=== PATIENT | male | born 1960 | race Caucasian/White ===

== ENCOUNTER 2021-08-07 01:49 | Inpatient (IN) | payer OTHER ==
[2021-08-07 02:38] LABS: Protime INR 1.39
[2021-08-07 02:42] LABS: Arterial Blood Carboxyhemoglob 2.9 % (0-1.5); Blood Gas Oxyhemoglobin 93.8 % (94-97); Blood O2 Saturation 97.8 % (92-98.5)
[2021-08-07] MEDS ORDERED: NA CHLORIDE 0.9% 2,000 ML ONE (02:42)
[2021-08-07 02:50] LABS: Absolute Lymphocytes (CBC) 0.1 K/uL (0.7-4.9); Basophils % 0.1 % (0-1.3); Hematocrit 28.1 % (39.6-49.0); Lymphocytes % 0.5 % (15.3-44.8); RBC Red Blood Cell Count 2.97 M/uL (4.33-5.43)
[2021-08-07] MEDS ORDERED: CEFEPIME/SWI 1gm 10 ML ONE (02:53)
[2021-08-07 02:54] LABS: ALT/SGPT 51 U/L (12-78); AST/SGOT 83 U/L (15-37); Albumin 1.9 g/dL (3.4-5.0); Alkaline Phosphatase 658 U/L (45-117); Amylase 20 U/L (25-115); BUN Blood Urea Nitrogen 23 mg/dL (7-18); Bicarbonate 18 mmol/L (21-32); Bilirubin Direct 1.1 mg/dL (0-0.2); Bilirubin Total 1.4 mg/dL (0.2-1.0); CKMB Creatine Kinase MB 2.7 ng/mL (1.0-3.6); Creatine Phosphokinase 75 U/L (39-308); Glucose Level 60 mg/dL (74-106); Lipase 11 U/L (73-393); NT PRO-BNP 6178 pg/mL (<125); Potassium 3.7 mmol/L (3.5-5.1); Protein, Total 5.4 g/dL (6.4-8.2); Sodium Level 140 mmol/L (136-145); Troponin (Emerg Dept Use Only) 0.12 ng/mL (0.0-0.045)
[2021-08-07] MEDS ORDERED: NA CHLORIDE 0.9% 250 ML ONE ×2 (03:18→22:37)
[2021-08-07] MEDS ORDERED: VANCOMYCIN 1 GM/VIAL ONE ×2 (03:18→22:36)
[2021-08-07] MEDS ORDERED: ALBUTEROL 2.5 MG/3 ML NEB SOL ONE ×4 (03:18→20:37)
[2021-08-07] MEDS ORDERED: IPRATROPIUM BROM 0.5MG/2.5ML ONE ×4 (03:18→20:37)
[2021-08-07 03:34] LABS: Blood Morphology Comment NOTED (NOT SEEN); Platelet Estimate ADEQ; Polychromasia 1+
[2021-08-07 03:40] LABS: SARS-COV-2 RT PCR NEGATIVE (NEGATIVE)
--- NOTE | 2021-08-07 04:25 | ER ---
Nurse's Notes [facility] Name: Mark Johnson Age: 61 yrs Sex: Male : 1960 Arrival Date: 08/07/2021 Time: 01:59 Bed 4 Private MD: Diagnosis: Sepsis, Pneumonia, Hypoxia Presentation: 08/07 01:59 Chief complaint: EMS states: called out for generalized weakness, low BP and low O2, em got out of [facility] last Saturday and removed port due to infection in it, also reports feeling chills, given 500 mL NS and IV Tylenol. Coronavirus screen: Vaccine status: Patient reports being unvaccinated. Ebola Screen: Patient negative for fever greater than or equal to 101.5 degrees Fahrenheit, and additional compatible Ebola Virus Disease symptoms Patient denies exposure to infectious person. Patient denies travel to an Ebola-affected area in the 21 days before illness onset. No symptoms or risks identified at this time. Initial Sepsis Screen: Does the patient meet any 2 criteria? RR > 20 per min. HR > 90 bpm. Yes Does the patient have a suspected source of infection? Yes: If YES to both, name of provider notified: Nitin Robert MD. Risk Assessment: Do you want to hurt yourself or someone else? Patient reports no desire to harm self or others. Onset of symptoms was August 07, 2021. 01:59 Method Of Arrival: EMS: [facility] em 01:59 Acuity: CHELITA 2 em Historical: - Allergies: 02:13 No Known Allergies; em - PMHx: 02:13 pancreatic cancer; em - Immunization history:: Client reports having NOT received the Covid vaccine. - Social history:: Smoking status: Patient denies any tobacco usage or history of. Screenin:35 Abuse screen: Denies threats or abuse. Nutritional screening: No deficits noted. jb4 Tuberculosis screening: No symptoms or risk factors identified. Fall Risk None identified. Assessment: 02:35 General: Appears in no apparent distress. uncomfortable, Behavior is calm, cooperative, jb4 appropriate for age. Pain: Complains of pain in back and abdomen Pain does not radiate. Pain currently is 10 out of 10 on a pain scale. Neuro: Level of Consciousness is awake, alert, obeys commands, Oriented to person, place, time, situation. Cardiovascular: Patient's skin is warm and dry. Respiratory: Airway is patent Respiratory effort is even, unlabored, Respiratory pattern is regular, symmetrical. GI: Abdomen is round distended, Abdomen is tender to palpation X 4 quads. Reports lower abdominal pain, upper abdominal pain. : No signs and/or symptoms were reported regarding the genitourinary system. EENT: No signs and/or symptoms were reported regarding the EENT system. Derm: Skin is intact, Skin is pink, warm \\T\\ dry. Musculoskeletal: Circulation, motion, and sensation intact. Range of motion: intact in all extremities. 03:38 Reassessment: Spoke to pt and spouse who confirm that pt does not want intubation or bb chest compressions if needed. He only wants supportive care with medication. 04:12 Reassessment: Patient appears in no apparent distress at this time. Patient and/or jb4 family updated on plan of care and expected duration. Pain level reassessed. Patient is alert, oriented x 3, equal unlabored respirations, skin warm/dry/pink. 05:00 Reassessment: Patient appears in no apparent distress at this time. Patient and/or jb4 family updated on plan of care and expected duration. Pain level reassessed. Patient is alert, oriented x 3, equal unlabored respirations, skin warm/dry/pink. Pt remains on bi-pap. 08:00 Reassessment: Decreased Levophed to 4mcg. ch5 08:01 Reassessment: Pt in distress and pulled BIPAP of stated"its to much air". RT paged. ch5 placed on NRB with decrease in O2 sat's to 72%. RT to bedside. medicated as ordered. Pt complaint of distended belly becoming uncomfortable. Used PT's drain to drain off 1200ml of fluid off his stomach. informed that his distention improved.. 08:01 Reassessment: resting quietly with eyes closed. Pt on max high flow NC and 10L NRB O2 ch5 due to mouth breathing. Sat 92%. 08:30 Reassessment: Decreased Levophed to 3mcg. ch5 09:59 Reassessment: MD Recio at bedside. tr6 Vital Signs: 01:59 BP 88 / 50; Pulse 137; Resp 30; Temp 98.7; Pulse Ox 99% on Non-rebreather mask; Weight em 58.97 kg; Height 5 ft. 11 in. (180.34 cm); 02:49 BP 68 / 49; Pulse 120; Resp 23; Pulse Ox 99% on Non-rebreather mask; jb4 03:06 BP 75 / 49; Pulse 121; em 03:30 BP 101 / 66; Pulse 115; Resp 29; Pulse Ox 95% on BiPAP; jb4 04:12 BP 98 / 62; Pulse 106; Resp 22; Pulse Ox 96% on CPAP; jb4 05:00 BP 93 / 60; Pulse 104; Resp 20; Pulse Ox 100% on BiPAP; jb4 06:00 BP 81 / 51; Pulse 119; Resp 22; Pulse Ox 89% on BiPAP; jb4 07:00 BP 87 / 62; Pulse 112; Resp 18; Pulse Ox 92% ; Pain 3/10; ch5 07:30 BP 98 / 54; Pulse 118; Resp 40; Pulse Ox 94% on BiPAP; Pain 0/10; ch5 08:00 BP 120 / 72; Pulse 125; Resp 36; Pulse Ox 100% on BiPAP; ch5 08:30 BP 127 / 83; Pulse 121; Resp 35; Pulse Ox 93% on Non-rebreather mask; Pain 0/10; ch5 09:25 BP 106 / 49; Pulse 126; Resp 40; Pulse Ox 90% ; ch5 10:48 BP 79 / 58; Pulse 117; Resp 30; Pulse Ox 100% on BiPAP; ch5 09/ 03:50 BP 105 / 73; Pulse 109; Resp 21; Temp 98.4; Pulse Ox 95% ; mr2 08/07 01:59 Body Mass Index 18.13 (58.97 kg, 180.34 cm) em 08/07 02:49 Provider notified of B/p, recieved verbal order for second 1L bolus of NS. jb4 08:30 On Highflow NC and NRB at 15 L ch5 09:25 ON both High flow NC and NRB ch5 ED Course: 01:59 Patient arrived in ED. em 02:01 Nitin Robert MD is Attending Physician. [facility] 02:03 Mark Harrison, RN is Primary Nurse. jb4 02:13 Triage completed. em 02:13 Arm band placed on. em 02:35 Chest Single View XRAY In Process Unspecified. EDMS 02:35 Patient has correct armband on for positive identification. Bed in low position. Call jb4 light in reach. Side rails up X 1. Pulse ox on. NIBP on. 02:35 Missed attempt(s): 18 gauge in right wrist. 20 gauge in left antecubital area. Bleeding jb4 controlled, band aid applied, catheter tip intact. 02:58 Notified ED physician of a critical lab result(s). WBCs of 21.0 and Lact[address] of 10.4 Dr chantell Robert notified. 03:51 Initiated transfer at [facility] with Oumar. Call was connected to Dr. Robert for tt3 consultation with Dr. Santos. Call was sent back and Oumar informed me that Dr. Santos believes the pt needs ICU. The only exceptions to have the pt accepted at this time would to have him stable without bipap, or to admit the pt and attempt to do an inpatient transfer to [facility]. Information was passed on to So Man RN, Charge Nurse and Dr. Robert. 04:03 CT Chest For PE Angio In Process Unspecified. EDMS 04:04 CT Abd/Pelvis - IV Contrast Only In Process Unspecified. EDMS 04:24 Franchesca Recio MD is Hospitalizing Provider. [facility] 05:28 Initiated transfer at [facility] with Shireen Crouch. Stated she would do a capacity tt3 check and call back. 05:33 Initiated transfer at [facility] with Brenda. Stated they were at ICU saturation but would tt3 keep the pt on a wait list. 05:38 Initiated transfer at [facility] with Alee. Was informed the request would be denied as there tt3 are no ICU beds in their [facility] region which includes all of [place], [place], and [facility]. Information passed on to Dr. Robert about all facilities so far. 05:45 Shireen Crouch with [facility] called back and stated that [facility], [facility], and [address] are all at capacity. Stated that once the pt is able to be downgraded a bed may be available at the [facility]. Shireen spoke with So Man RN, Charge Nurse and informed her of this information. 05:55 Initiated transfer at [facility] with Trav Snell. Stated he would do a capacity tt3 check and call back. 05:57 Initiated transfer at [facility] with Alisa Moni. Was informed that they were at ICU tt3 capacity so they would have to deny the transfer request. 06:00 Assisted provider with central line placement. Set up central line tray. Triple lumen jb4 line placed in right femoral. Line placed by Lonnie COOMBS Placement verified by blood return, Dressed with Tegaderm, Patient tolerated well. 06:00 Patient admitted, IV remains in place. jb4 06:19 Travbryson Snell with [facility] called back and stated that they are on a system wide tt3 saturation and would have to deny the transfer request. 07:47 Basic Metabolic Panel Sent. 5 08:21 spoke with Joycelyn at [facility]. she will call back after taking to admin about taking bd the pt. 08/10 22:12 Amylase, Serum Sent. wg 08/11 11:17 EKG done, by ED staff, reviewed by Franchesca Recio MD. mh5 Administered Medications: 08/07 02:03 Not Given (Physician Discretion): NS 0.9% (30 ml/kg) 30 ml/kg IV at bolus once; Sepsis jb4 Protocol 02:31 Not Given (Hemodynamic Parameters): morphine 4 mg IVP once; RASS on ADMIN: Combtv4, jb4 Very Agttd3, Agttd2, Rstlss1, AlertClm0, Drwsy-1, Lt Sdtn-2, Mod Sdtn-3, Dp Sdtn-4, UnArsble-5 02:31 Not Given (Patient Refused): Zofran (Ondansetron) 4 mg IVP once; over 2 minutes jb4 02:31 Drug: Cefepime 1 grams Route: IVPB; Rate: 200 ml/hr; Infused Over: 30 mins; Site: right em antecubital; 03:00 Follow up: Response: No adverse reaction; IV Status: Completed infusion jb4 02:31 Drug: NS 0.9% 1000 ml Route: IV; Rate: 1 bolus; Site: right antecubital; jb4 03:30 Follow up: Response: No adverse reaction; IV Status: Completed infusion; IV Intake: jb4 1000ml 02:57 Drug: NS 0.9% 1000 ml Route: IV; Rate: 1 bolus; Site: right antecubital; jb4 04:00 Follow up: Response: No adverse reaction; IV Status: Completed infusion; IV Intake: jb4 1000ml 04:07 Drug: vancoMYCIN 1 grams Route: IVPB; Infused Over: 2 hrs; Site: right antecubital; jb4 06:07 Follow up: Response: No adverse reaction; IV Status: Completed infusion; IV Intake: jb4 250ml 04:28 Drug: Albuterol 2.5 mg Route: Inhalation; jb4 04:52 Follow up: Response: No adverse reaction jb4 04:28 Drug: AtroVENT (ipratropium) Aerosol 0.5 mg Route: Inhalation; jb4 04:52 Follow up: Response: No adverse reaction jb4 04:50 Drug: D5-NS 1000 ml Route: IV; Rate: 125 ml/hr; Site: right antecubital; jb4 06:14 Not Given (Medication unavailable): Calcium Gluconate 1 grams IVPB once over 60 mins; jb4 (mix in NS 100 mL) 06:26 Drug: NS 0.9% 500 ml Route: IV; Rate: bolus; Site: right femoral; jb4 06:48 Follow up: Response: No adverse reaction; IV Status: Completed infusion; IV Intake: jb4 500ml 06:26 Drug: Levophed (norepinephrine) (4 mg/250 mL D5W 4 mcg/min Route: IV; Rate: calculated jb4 rate; Site: right femoral; 08:00 Follow up: Rate change 4 mcg/min ch5 08:30 Follow up: Rate change 3 mcg/min ch5 10:42 Follow up: Rate change 4 mcg/min ch5 06:47 Drug: Ativan (LORazepam) 0.5 mg Route: IVP; Site: right femoral; jb4 07:48 Drug: Ativan (LORazepam) 0.5 mg Route: IVP; Site: right antecubital; ch5 09:35 Follow up: Response: RASS: Alert and Calm (0) ch5 09:35 Drug: Ativan (LORazepam) 0.5 mg Route: IVP; Site: right antecubital; ch5 Intake: 03:30 IV: 1000ml; Total: 1000ml. jb4 04:00 IV: 1000ml; Total: 2000ml. jb4 06:07 IV: 250ml; Total: 2250ml. jb4 06:48 IV: 500ml; Total: 2750ml. jb4 Outcome: 04:25 Decision to Hospitalize by Provider. mh7 08/12 14:56 Patient left the ED. sv Signatures: Dispatcher [employer] EDMargi Fine Stephanie, RN RN sv Carmelo White, RN RN So Strong, AMERICO RN bb Mark Harrison, AMERICO RN jb4 Azalea Clarke Nitin Morrison MD MD 7 Jeff Alves 3 Annalisa Florez RN RN 6 Shubham Puente RN RN ch5 Beny Beaver RN Harrison Funk RN RN mr2 Corrections: (The following items were deleted from the chart) 08/07 08:42 08:00 Reassessment: Decreased Levophed to 3mcg. ch5 ch5 10:18 10:12 Rate change 3 mcg/min ch5 ch5
--- NOTE | 2021-08-07 04:25 | EDPHYS ---
Physician Documentation [facility] Name: Mark Johnson Age: 61 yrs Sex: Male : 1960 Arrival Date: 08/07/2021 Time: 01:59 Bed 4 Private MD: ED Physician Nitin Robert HPI: 08/07 01:55 This 61 yrs old Male presents to ER via EMS with complaints of Shortness of mh7 Breath. 01:55 The patient has shortness of breath at rest. Onset: The symptoms/episode began/occurred mh7 last night. Duration: The symptoms are continuous, and are steadily getting worse. The patient's shortness of breath is aggravated by nothing, is alleviated by nothing. Associated signs and symptoms: Pertinent negatives: chest pain, non-productive cough, productive cough, diaphoresis, dizziness, fever, hemoptysis, loss of consciousness, nausea, numbness in extremities, visual changes, vomiting, Generalized weakness. Severity of symptoms: At their worst the symptoms were moderate today, in the emergency department the symptoms are unchanged. Patient is being treated at [facility] for pancreatic cancer. He was admitted there and discharged last week after treatment for sepsis related to an indwelling catheter. He denies any headache, chest pain, fever, nausea, vomiting, diarrhea, numbness/tingling, or focal weakness.. Historical: - Allergies: 02:13 No Known Allergies; em - PMHx: 02:13 pancreatic cancer; em - Immunization history:: Client reports having NOT received the Covid vaccine. - Social history:: Smoking status: Patient denies any tobacco usage or history of. ROS: 01:55 Constitutional: Negative for fever, chills, and weight loss, Eyes: Negative for injury, mh7 pain, redness, and discharge, ENT: Negative for injury, pain, and discharge, Neck: Negative for injury, pain, and swelling, Cardiovascular: Negative for chest pain, palpitations, and edema, Back: Negative for injury and pain, : Negative for injury, bleeding, discharge, and swelling, MS/Extremity: Negative for injury and deformity, Skin: Negative for injury, rash, and discoloration, Neuro: Negative for headache, weakness, numbness, tingling, and seizure, Psych: Negative for depression, anxiety, suicide ideation, homicidal ideation, and hallucinations, Allergy/Immunology: Negative for hives, rash, and allergies, Endocrine: Negative for neck swelling, polydipsia, polyuria, polyphagia, and marked weight changes, Hematologic/Lymphatic: Negative for swollen nodes, abnormal bleeding, and unusual bruising. Exam: 01:55 Head/Face: Normocephalic, atraumatic. Eyes: Pupils equal round and reactive to light, mh7 extra-ocular motions intact. Lids and lashes normal. Conjunctiva and sclera are non-icteric and not injected. Cornea within normal limits. Periorbital areas with no swelling, redness, or edema. Neck: Trachea midline, no thyromegaly or masses palpated, and no cervical lymphadenopathy. Supple, full range of motion without nuchal rigidity, or vertebral point tenderness. No Meningismus. Chest/axilla: Normal chest wall appearance and motion. Nontender with no deformity. No lesions are appreciated. 01:55 Back: No spinal tenderness. No costovertebral tenderness. Full range of motion. Skin: Warm, dry with normal turgor. Normal color with no rashes, no lesions, and no evidence of cellulitis. MS/ Extremity: Pulses equal, no cyanosis. Neurovascular intact. Full, normal range of motion. Neuro: Awake and alert, GCS 15, oriented to person, place, time, and situation. Cranial nerves II-XII grossly intact. Motor strength 5/5 in all extremities. Sensory grossly intact. Cerebellar exam normal. Normal gait. Psych: Awake, alert, with orientation to person, place and time. Behavior, mood, and affect are within normal limits. 01:55 Constitutional: The patient appears alert, awake, in obvious distress, mildly distressed, obviously ill, uncomfortable. 01:55 Constitutional: The patient appears frail. 01:55 Cardiovascular: Rate: tachycardic, Rhythm: regular, Pulses: no pulse deficits are appreciated, Heart sounds: normal, normal S1and S2, Edema: pedal edema, that is moderate, JVD: is not appreciated. 01:55 Respiratory: mild respiratory distress is noted, Respirations: prolonged exhalation, that is mild, tachypnea, that is moderate, Breath sounds: rhonchi, that are moderate, are heard diffusely, Respiratory rate: 26 01:55 Abdomen/GI: Inspection: distension, that is moderate, Bowel sounds: normal, in all quadrants, Palpation: mild abdominal tenderness, in all quadrants, Rectal exam: the exam is deferred, because of patient request, Indicators: McBurney's point is not tender, Heller's sign is negative, Rovsing's sign is negative, Obturator sign is negative, Psoas sign is negative, Liver: no appreciated palpable abnormalities, Hernia: not appreciated. Vital Signs: 01:59 BP 88 / 50; Pulse 137; Resp 30; Temp 98.7; Pulse Ox 99% on Non-rebreather mask; Weight em 58.97 kg; Height 5 ft. 11 in. (180.34 cm); 02:49 BP 68 / 49; Pulse 120; Resp 23; Pulse Ox 99% on Non-rebreather mask; jb4 03:06 BP 75 / 49; Pulse 121; em 03:30 BP 101 / 66; Pulse 115; Resp 29; Pulse Ox 95% on BiPAP; jb4 04:12 BP 98 / 62; Pulse 106; Resp 22; Pulse Ox 96% on CPAP; jb4 05:00 BP 93 / 60; Pulse 104; Resp 20; Pulse Ox 100% on BiPAP; jb4 06:00 BP 81 / 51; Pulse 119; Resp 22; Pulse Ox 89% on BiPAP; jb4 07:00 BP 87 / 62; Pulse 112; Resp 18; Pulse Ox 92% ; Pain 3/10; ch5 07:30 BP 98 / 54; Pulse 118; Resp 40; Pulse Ox 94% on BiPAP; Pain 0/10; ch5 08:00 BP 120 / 72; Pulse 125; Resp 36; Pulse Ox 100% on BiPAP; ch5 08:30 BP 127 / 83; Pulse 121; Resp 35; Pulse Ox 93% on Non-rebreather mask; Pain 0/10; ch5 09:25 BP 106 / 49; Pulse 126; Resp 40; Pulse Ox 90% ; ch5 10:48 BP 79 / 58; Pulse 117; Resp 30; Pulse Ox 100% on BiPAP; ch5 09 03:50 BP 105 / 73; Pulse 109; Resp 21; Temp 98.4; Pulse Ox 95% ; mr2 08/07 01:59 Body Mass Index 18.13 (58.97 kg, 180.34 cm) em 08/07 02:49 Provider notified of B/p, recieved verbal order for second 1L bolus of NS. jb4 08:30 On [place] NC and NRB at 15 L ch5 09:25 ON both High flow NC and NRB ch5 MDM: 04:22 Differential diagnosis: Anemia Anxiety Reaction asthma, Bronchitis CHF exacerbation, mh7 Chronic Obstructive Pulmonary Disease Myocardial Infarction pneumonia, Pneumothorax Psychogenic pulmonary edema, reactive airway disease. Antibiotic administration: Vancomycin plus cefepime. Data reviewed: vital signs, nurses notes, EMS record, lab test result(s), cardiac enzymes, CBC, electrolytes, EKG, radiologic studies, plain films. Data interpreted: Pulse oximetry: on BiPAP is 96 %. Interpretation: acceptable. Counseling: I had a detailed discussion with the patient and/or guardian regarding: the historical points, exam findings, and any diagnostic results supporting the discharge/admit diagnosis, lab results, radiology results, the need for further work-up and treatment in the hospital. 04:25 Patient medically screened. [facility] 04:25 ED course: Patient and his have decided to have DO NOT INTUBATE and no CPR status. [facility] We will allow IV medications including antibiotics and pressors as needed. She requested transfer to [facility] for continued care. Attempted to transfer to [facility] but transfer was declined due to no available ICU beds at this time. Will admit here and may re approach transfer to [facility] if a bed becomes available. This plan was discussed with the patient and his and they approve.. 08/07 02:02 Order name: Amylase, Serum [facility] 08/07 02:02 Order name: Basic Metabolic Panel [facility] 08/07 02:02 Order name: Blood Culture Adult (2) [facility] 08/07 02:02 Order name: CBC with Diff; Complete Time: 03:41 [facility] 08/07 02:02 Order name: CPK; Complete Time: 02:56 [facility] 08/07 02:02 Order name: Ckmb; Complete Time: 02:56 [facility] 08/07 02:02 Order name: LFT's; Complete Time: 02:56 [facility] 08/07 02:02 Order name: Lactate; Complete Time: 02:56 [facility] 08/07 02:02 Order name: Lipase; Complete Time: 02:56 [facility] 08/07 02:02 Order name: Procalcitonin; Complete Time: 03:41 [facility] 08/07 02:02 Order name: Protime (+inr); Complete Time: 02:52 7 08/07 02:02 Order name: Ptt, Activated; Complete Time: 02:52 7 08/07 02:02 Order name: Troponin (emerg Dept Use Only); Complete Time: 02:56 7 08/07 02:02 Order name: Urine Microscopic Only [facility] 08/07 02:02 Order name: PROBNP; Complete Time: 02:56 7 08/07 02:02 Order name: Amylase; Complete Time: 02:56 EDMS 08/07 02:02 Order name: Basic Metabolic Panel; Complete Time: 02:56 EDMS 08/07 02:07 Order name: Arterial Blood Gas; Complete Time: 07:43 7 08/07 02:53 Order name: Manual Differential; Complete Time: 03:41 EDMS 08/07 03:40 Order name: COVID-19/FLU A+B; Complete Time: 03:41 EDMS 08/07 05:22 Order name: Fluid Cell Count,Body; Complete Time: 16:30 [facility] 08/07 05:22 Order name: Body Fluid Culture; Complete Time: 16:30 [facility] 08/07 05:23 Order name: Misc. Lab Test; Complete Time: 16:30 [facility] 08/07 06:15 Order name: Lactate Sepsis 2 HR Follow-up; Complete Time: 07:43 EDMS 08/07 10:28 Order name: Basic Metabolic Panel; Complete Time: 16:30 [facility] 08/07 10:28 Order name: Lactate; Complete Time: 16:30 MS 08/07 12:02 Order name: ABG Arterial Blood Gas; Complete Time: 16:30 MS 08/07 15:04 Order name: Glucose, Ancillary Testing; Complete Time: 16:30 EDMS 08/07 15:25 Order name: Glucose, Ancillary Testing; Complete Time: 16:30 EDMS 08/07 17:01 Order name: Glucose, Ancillary Testing; Complete Time: 16:30 MS 08/07 17:40 Order name: Lactate Sepsis 2 HR Follow-up; Complete Time: 16:30 MS 08/07 18:29 Order name: Glucose, Ancillary Testing; Complete Time: 16:30 EDMS 08/07 18:51 Order name: Glucose, Ancillary Testing; Complete Time: 16:30 MS 08/07 19:41 Order name: Glucose, Ancillary Testing; Complete Time: 16:30 EDMS 08/07 21:56 Order name: Glucose, Ancillary Testing; Complete Time: 16:30 EDMS 08/08 00:45 Order name: Glucose, Ancillary Testing; Complete Time: 16:30 EDMS 08/08 04:30 Order name: Basic Metabolic Panel; Complete Time: 16:30 EDMS 08/08 04:30 Order name: Phosphorus; Complete Time: 16:30 EDMS 08/08 04:30 Order name: NT PRO-BNP; Complete Time: 16:30 EDMS 08/08 04:30 Order name: Magnesium; Complete Time: 16:30 EDMS 08/08 04:42 Order name: Lactate; Complete Time: 16:30 EDMS 08/08 04:50 Order name: Manual Differential; Complete Time: 16:30 EDMS 08/08 04:50 Order name: CBC with Automated Diff; Complete Time: 16:30 EDMS 08/08 06:02 Order name: ABG Arterial Blood Gas; Complete Time: 16:30 EDMS 08/08 07:35 Order name: Gram Stain--Aerobic Bottle EDMS 08/08 07:35 Order name: Gram Stain--Anaerobic Bottle EDMS 08/08 07:38 Order name: Gram Stain--Aerobic Bottle EDMS 08/08 07:38 Order name: Gram Stain--Anaerobic Bottle EDMS 08/08 07:44 Order name: Lactate Sepsis 2 HR Follow-up; Complete Time: 16:30 EDMS 08/08 07:46 Order name: Glucose, Ancillary Testing; Complete Time: 16:30 EDMS 08/08 08:03 Order name: Type and Screen EDMS 08/08 09:47 Order name: ABO/RH no charge; Complete Time: 16:30 EDMS 08/08 11:33 Order name: Glucose, Ancillary Testing; Complete Time: 16:30 EDMS 08/08 14:57 Order name: Glucose, Ancillary Testing; Complete Time: 16:30 EDMS 08/08 21:59 Order name: CBC with Automated Diff; Complete Time: 16:30 EDMS 08/08 22:21 Order name: Vancomycin Level Trough; Complete Time: 16:30 EDMS 08/08 23:54 Order name: Glucose, Ancillary Testing; Complete Time: 16:30 EDMS 08/09 06:01 Order name: CBC with Automated Diff; Complete Time: 16:30 EDMS 08/09 06:28 Order name: Lactate; Complete Time: 16:30 EDMS 08/07 02:02 Order name: Chest Single View XRAY; Complete Time: 16:30 7 08/07 02:58 Order name: CT Chest For PE Angio; Complete Time: 16:30 7 08/07 02:58 Order name: CT Abd/Pelvis - IV Contrast Only; Complete Time: 16:30 [facility] 08/09 06:30 Order name: Basic Metabolic Panel; Complete Time: 16:30 EDMS 08/09 06:30 Order name: Phosphorus; Complete Time: 16:30 EDMS 08/09 06:30 Order name: Magnesium; Complete Time: 16:30 EDMS 08/09 07:53 Order name: Glucose, Ancillary Testing; Complete Time: 16:30 EDMS 08/09 08:14 Order name: CBC Smear Scan; Complete Time: 16:30 EDMS 08/09 09:35 Order name: Lactate Sepsis 2 HR Follow-up; Complete Time: 16:30 EDMS 08/09 15:13 Order name: RAD; Complete Time: 16:30 EDMS 08/09 17:34 Order name: Protime (+INR); Complete Time: 16:30 EDMS 08/09 17:34 Order name: PTT, Activated Partial Thromb; Complete Time: 16:30 EDMS 08/09 17:34 Order name: Fibrinogen; Complete Time: 16:30 EDMS 08/09 17:34 Order name: D-Dimer; Complete Time: 16:30 EDMS 08/10 05:34 Order name: Lactate; Complete Time: 16:30 EDMS 08/10 05:34 Order name: Comprehensive Metabolic Panel; Complete Time: 16:30 EDMS 08/10 05:34 Order name: Phosphorus; Complete Time: 16:30 EDMS 08/10 05:34 Order name: NT PRO-BNP; Complete Time: 16:30 EDMS 08/10 05:34 Order name: Magnesium; Complete Time: 16:30 EDMS 08/10 05:42 Order name: Procalcitonin; Complete Time: 16:30 EDMS 08/10 05:48 Order name: CBC with Automated Diff; Complete Time: 16:30 EDMS 08/10 08:25 Order name: Glucose, Ancillary Testing; Complete Time: 16:30 EDMS 08/10 08:48 Order name: Vancomycin Level Trough; Complete Time: 16:30 EDMS 08/10 08:51 Order name: Lactate Sepsis 2 HR Follow-up; Complete Time: 16:30 EDMS 08/10 10:08 Order name: Potassium; Complete Time: 16:30 EDMS 08/10 11:47 Order name: Miscellaneous Test Lab; Complete Time: 16:30 EDMS 08/10 13:21 Order name: Glucose, Ancillary Testing; Complete Time: 16:30 EDMS 08/10 20:16 Order name: CT EDMS 08/10 20:20 Order name: CT EDMS 08/10 22:17 Order name: Glucose, Ancillary Testing EDMS 08/11 00:21 Order name: Blood Culture EDMS 08/11 06:28 Order name: CBC with Automated Diff EDMS 08/11 06:40 Order name: Ammonia EDMS 08/11 06:42 Order name: Comprehensive Metabolic Panel EDMS 08/11 06:42 Order name: Phosphorus EDMS 08/11 06:42 Order name: NT PRO-BNP EDMS 08/11 06:42 Order name: Magnesium EDMS 08/11 07:18 Order name: Procalcitonin EDMS 08/11 07:23 Order name: RAD EDMS 08/11 07:27 Order name: Glucose, Ancillary Testing EDMS 08/11 08:38 Order name: Manual Differential EDMS 08/11 14:13 Order name: Fungal Culture and Stain EDMS 08/11 14:13 Order name: Fungal Culture Blood EDMS 08/11 16:03 Order name: Urinalysis W/Microscopic EDMS 08/11 16:17 Order name: Miscellaneous Test Lab EDMS 08/11 16:32 Order name: Miscellaneous Test Lab EDMS 08/11 18:43 Order name: Potassium EDMS 08/11 21:11 Order name: Miscellaneous Test Lab EDMS 08/12 06:45 Order name: CBC with Automated Diff EDMS 08/12 07:07 Order name: Comprehensive Metabolic Panel EDMS 08/12 07:07 Order name: Magnesium EDMS 08/12 08:09 Order name: Glucose, Ancillary Testing EDMS 08/12 11:05 Order name: Manual Differential EDMS 08/12 14:23 Order name: Blood Culture EDMS 08/12 14:24 Order name: Blood Culture EDMS 08/07 02:02 Order name: Accucheck; Complete Time: 02:33 7 08/07 02:02 Order name: Cardiac monitoring; Complete Time: 02:03 7 08/07 02:02 Order name: EKG - Nurse/Tech; Complete Time: 02:03 7 08/07 02:02 Order name: IV Saline Lock - Large Bore; Complete Time: 02:31 7 08/07 02:02 Order name: Labs collected and sent; Complete Time: 02: 7 08/07 02:02 Order name: O2 Per Protocol; Complete Time: 02:03 7 08/07 02:02 Order name: O2 Sat Monitoring; Complete Time: 02:03 7 08/07 10:28 Order name: CONS Physician Consult; Complete Time: 22:11 EDMS 08/07 10:28 Order name: CONS Physician Consult; Complete Time: 22:11 EDMS 08/07 10:28 Order name: Social Service Consult; Complete Time: 22:11 EDMS 08/07 10:28 Order name: Regular; Complete Time: 22:11 EDMS 08/07 10:30 Order name: EKG Electrocardiogram; Complete Time: 22:11 EDMS Administered Medications: 02:03 Not Given (Physician Discretion): NS 0.9% (30 ml/kg) 30 ml/kg IV at bolus once; Sepsis jb4 Protocol 02:31 Not Given (Hemodynamic Parameters): morphine 4 mg IVP once; RASS on ADMIN: Combtv4, jb4 Very Agttd3, Agttd2, Rstlss1, AlertClm0, Drwsy-1, Lt Sdtn-2, Mod Sdtn-3, Dp Sdtn-4, UnArsble-5 02:31 Not Given (Patient Refused): Zofran (Ondansetron) 4 mg IVP once; over 2 minutes jb4 02:31 Drug: Cefepime 1 grams Route: IVPB; Rate: 200 ml/hr; Infused Over: 30 mins; Site: right em antecubital; 03:00 Follow up: Response: No adverse reaction; IV Status: Completed infusion jb4 02:31 Drug: NS 0.9% 1000 ml Route: IV; Rate: 1 bolus; Site: right antecubital; jb4 03:30 Follow up: Response: No adverse reaction; IV Status: Completed infusion; IV Intake: jb4 1000ml 02:57 Drug: NS 0.9% 1000 ml Route: IV; Rate: 1 bolus; Site: right antecubital; jb4 04:00 Follow up: Response: No adverse reaction; IV Status: Completed infusion; IV Intake: jb4 1000ml 04:07 Drug: vancoMYCIN 1 grams Route: IVPB; Infused Over: 2 hrs; Site: right antecubital; jb4 06:07 Follow up: Response: No adverse reaction; IV Status: Completed infusion; IV Intake: jb4 250ml 04:28 Drug: Albuterol 2.5 mg Route: Inhalation; jb4 04:52 Follow up: Response: No adverse reaction jb4 04:28 Drug: AtroVENT (ipratropium) Aerosol 0.5 mg Route: Inhalation; jb4 04:52 Follow up: Response: No adverse reaction jb4 04:50 Drug: D5-NS 1000 ml Route: IV; Rate: 125 ml/hr; Site: right antecubital; jb4 06:14 Not Given (Medication unavailable): Calcium Gluconate 1 grams IVPB once over 60 mins; jb4 (mix in NS 100 mL) 06:26 Drug: NS 0.9% 500 ml Route: IV; Rate: bolus; Site: right femoral; jb4 06:48 Follow up: Response: No adverse reaction; IV Status: Completed infusion; IV Intake: jb4 500ml 06:26 Drug: Levophed (norepinephrine) (4 mg/250 mL D5W 4 mcg/min Route: IV; Rate: calculated jb4 rate; Site: right femoral; 08:00 Follow up: Rate change 4 mcg/min ch5 08:30 Follow up: Rate change 3 mcg/min ch5 10:42 Follow up: Rate change 4 mcg/min ch5 06:47 Drug: Ativan (LORazepam) 0.5 mg Route: IVP; Site: right femoral; jb4 07:48 Drug: Ativan (LORazepam) 0.5 mg Route: IVP; Site: right antecubital; ch5 09:35 Follow up: Response: RASS: Alert and Calm (0) ch5 09:35 Drug: Ativan (LORazepam) 0.5 mg Route: IVP; Site: right antecubital; ch5 Disposition Summary: 08/07/21 04:25 Hospitalization Ordered Hospitalization Status: Inpatient Admission [facility] Provider: Franchesca Recio7 Condition: Fair [facility] Problem: an acute exacerbation mh7 Symptoms: have improved 7 Bed/Room Type: Standard [facility] Location: Telemetry/MedSurg (Inpatient)(08/12/21 13:20) Room Assignment: 208(08/12/21 13:20) sv Diagnosis - Sepsis, Pneumonia, Hypoxia [facility] Forms: - Medication Reconciliation Form 7 - SBAR form 7 Signatures: Dispatcher [employer] EDMS Haydee Hui RN RN Carmelo White RN RN em Sam Ramirez MD MD rn Smirch, Shelby, RN RN Mark Harrison RN RN jb4 Holmes, Maurice, MD MD 7 Shubham Puente RN RN ch5 Jonnathan Prince pr3 Corrections: (The following items were deleted from the chart) 02:35 02:07 Influenza Screen (A \T\ B)+BA.LAB.BRZ ordered. EDMS EDMS 02:36 02:07 CORONAVIRUS+MR.LAB.BRZ ordered. EDMS EDMS 05:23 05:23 FLUID SOURCE+H.LAB.BRZ ordered. EDMS EDMS 13:10 04:25 Telemetry/MedSurg (Inpatient) [facility] 13:10 04:25 [facility] 08/10 22:11 08/07 02:02 Urine Dipstick-Ancillary ordered. 7 08/12 13:20 08/07 13:10 [facility] ER HOLD sv 08/12 13:20 08/07 13:10 ERHOLD- [facility]
[2021-08-07] MEDS ORDERED: D5 0.9 NS 1,000 ML IV ONE (04:42)
[2021-08-07 06:29] LABS: Body Fluid Source PERITONEAL
[2021-08-07 06:30] LABS: Appearance SLT. TURBID (CLEAR); Color of fluid Yellow (COLORLESS)
[2021-08-07] MEDS ORDERED: NOREPINEPHRINE 4mg/D5W 250mL 4 MG/250 ML BAG IV ONE (06:43)
[2021-08-07] MEDS ORDERED: NA CHLORIDE 0.9% 500 ML ONE (06:43)
[2021-08-07] MEDS ORDERED: LORazepam 2 MG/ML VIAL ONE ×3 (07:05→13:00)
[2021-08-07 10:06] LABS: Body Fluid WBC 68 /mm^3
[2021-08-07] MEDS ORDERED: HYDROCORTISONE SUC 100 MG INJ IV ONE ×2 (10:06→19:08)
[2021-08-07] MEDS ORDERED: ALBUMIN HUMAN 25% 200 ML IV ONE ×3 (10:10→21:16)
[2021-08-07] MEDS ORDERED: ONDANSETRON 4 MG/2 ML VIAL IV PRN (10:22)
[2021-08-07] MEDS ORDERED: NOREPINEPHRINE 4 MG in D5W 250 ML IV PRN (11:15)
[2021-08-07 12:00] LABS: Arterial Blood Carboxyhemoglob 1.6 % (0-1.5); Blood Gas Oxyhemoglobin 79.4 % (94-97); Blood O2 Saturation 81.8 % (92-98.5)
[2021-08-07] MEDS: VANCOMYCIN/NS 1 gm 1 GM/250 ML BAG IVPB SCH ×2 (12:00→22:30)
[2021-08-07] MEDS: ALBUTEROL 2.5 MG/3 ML NEB SOL NEB SCH ×3 (12:00→20:18)
[2021-08-07] MEDS: PANTOPRAZOLE 40 MG INJ IVP SCH (12:00)
[2021-08-07] MEDS ORDERED: PIPER TAZO 3.375 GM in NA CHLORIDE 0.9% 100 ML IV SCH (12:00)
[2021-08-07] MEDS: D5W 1,000 ML with NA BICARB 8.4% 150 MEQ IV SCH ×4 (12:00→23:00)
[2021-08-07] MEDS: IPRATROPIUM BROM 0.5MG/2.5ML NEB SCH ×3 (12:00→20:18)
[2021-08-07] MEDS: LORazepam 2 MG/ML VIAL IV PRN (12:30)
--- NOTE | 2021-08-07 12:43 | RAD REPORT ---
EXAM DESCRIPTION: CT Angiography Chest With Intravenous Contrast CLINICAL HISTORY: The patient is 61 years old and is Male; pancreatic cancer;Abdominal distention TECHNIQUE: Axial computed tomographic angiography images of the chest with intravenous contrast. S agittal and coronal reformatted images were created and reviewed. This CT exam was performed using one or more of the following dose reduction techniques: automated exposure control, adjustment of t he mA and/or kV according to patient size, and/or use of iterative reconstruction technique. MIP re constructed images were created and reviewed. COMPARISON: No relevant prior studies available. FINDINGS: Artifacts: Mild motion artifact. Pulmonary arteries: No definite PE visualized. Aorta: No acute findings. No thoracic aortic aneurysm. Lungs: Dependent atelectasis in the lungs. Hazy dependent groundglass opacities bilaterally sugge sting mild edema. Pleural space: No significant pleural fluid. No pneumothorax. Heart: Unremarkable. No cardiomegaly. No significant pericardial effusion. No evidence of R V dysfunction. 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 No acute fractur e visualized. No dislocation. Soft tissues: Unremarkable. Lymph nodes: Unremarkable. No enlarged lymph nodes. * A single impression for all exams can be found at the end of this report EXAM DESCRIPTION: CT Abdomen and Pelvis With Intravenous Contrast CLINICAL HISTORY: The patient is 61 years old and is Male; pancreatic cancer;Abdominal distention TECHNIQUE: Axial computed tomography images of the abdomen and pelvis with intravenous contrast. S agittal and coronal reformatted images were created and reviewed. This CT exam was performed using one or more of the following dose reduction techniques: automated exposure control, adjustment of t he mA and/or kV according to patient size, and/or use of iterative reconstruction technique. COMPARISON: No relevant prior studies available. FINDINGS: Lung bases: Unremarkable. No mass. No consolidation. ABDOMEN: Liver: There are a few tiny hypodense lesions in the right hepatic lobe too small accurately marah acterize, less than 5 mm. Gallbladder and bile ducts: Mild intrahepatic biliary dilatation with pneumobilia. Distended gall bladder. Biliary stent. No definite biliary duct dilatation. No calcified stones. Pancreas: Mild edema in the distal pancreatic head. Atrophic pancreatic tail. Spleen: No splenomegaly. Adrenals: Unremarkable. No mass. Kidneys and ureters: Punctate left nephrolithiasis. Kidneys are otherwise unremarkable. No hydronephrosis. Stomach and bowel: Enhancing rugal folds in the stomach, with air-fluid level in the stomach. Duo denum wall thickening. Large amount of stool in the colon from the proximal left colon to the rectum. Mild diffuse r ectal wall thickening. No small bowel dilatation or obstruction. PELVIS: Appendix: No findings to suggest acute appendicitis. Bladder: Unremarkable. No mass. Reproductive: Unremarkable as visualized. ABDOMEN and PELVIS: Intraperitoneal space: Moderate to large amount of ascites. No free air. Bones/joints: Multiple compression fractures, T12-L4, old/chronic in appearance. Degenerative dis c disease with endplate change at L5-S1. No dislocation. Soft tissues: Diffuse subcutaneous edema. Vasculature: IVC filter. No abdominal aortic aneurysm. Lymph nodes: No pathologically enlarged lymph nodes. Tubes, lines and devices: Percutaneous pigtail catheter in the right lateral abdomen. * A single impression for all exams can be found at the end of this report IMPRESSION: CT Angiography Chest With Intravenous Contrast: 1. Mild motion artifact. No PE identified. 2. Dependent atelectasis in the lungs. Hazy dependent groundglass opacities bilaterally suggesting mild edema. CT Abdomen and Pelvis With Intravenous Contrast: 1. Moderate to large amount of ascites. 2. Mild intrahepatic biliary dilatation with pneumobilia. Distended gallbladder. Biliary stent. 3. There are a few tiny hypodense lesions in the right hepatic lobe too small accurately characteri ze, less than 5 mm. Comparison with previous exams recommended. 4. Mild edema in the distal pancreatic head. Atrophic pancreatic tail. No pancreatic duct dilatatio n. 5. Duodenum wall thickening. Correlate clinically for duodenitis. 6. Large amount of stool in the colon from the proximal left colon to the rectum. Mild diffuse rect al wall thickening, consistent with colitis. 7. Diffuse subcutaneous edema. 8. Additional non-emergent findings as above. Electronically signed by: Haydee Harris MD 08/07/2021 4:49 AM CDT Due to temporary technical issues with the PACS/Fluency reporting system, reports are being signed by the in house radiologists without review as a courtesy to insure prompt reporting. The interpreting radiologist is fully responsible for the content of the report.
[2021-08-07] MEDS ORDERED: HYDROCORTISONE SUC 100 MG INJ ONE ×2 (12:51→20:58)
[2021-08-07] MEDS ORDERED: ALBUMIN HUMAN 25% 50 ML IV ONE (12:51)
--- NOTE | 2021-08-07 12:54 | P.CNS ---
Date of Consult: 08/07/21 History of Present Illness: The patient's is [age]-year-old male with a past medical history of pancreatic cancer who presented to the emergency department due to shortness of breath. Patient seen at with BiPAP on sedated with Ativan. ROS and history unable to obtain, information obtained from chart review. [facility] ED note the patient's symptoms began about 7 hr prior to admission. Shortness breath is aggravated by nothing alleviated by nothing. Patient denied chest pain, nonproductive cough, diaphoresis, dizziness, fever, nausea, vomiting. Patient was admitted at [facility] about a week ago and treated for sepsis related to his indwelling peritoneal catheter. ED labs significant of WBC 21.0 with left shift, hemoglobin 9.3, hematocrit 28.1, lactic acid 10.4, procalcitonin 14.6 BNP 6178, troponin 0.12. Blood cultures pending, ascites fluid culture pending. CT chest, abdomen, pelvis pending. Patient empirically placed on IV vancomycin and meropenem. Allergies No Known Allergies Allergy (Unverified 08/07/21 11:07) Review of Systems is unable to be obtained Physical Examination General: Cachectic, Other (Sedated, sleeping comfortably with BiPAP) HEENT: Atraumatic, Normocephalic Neck: Supple, 2+ carotid pulse no bruit Respiratory: Clear to auscultation bilaterally, Normal air movement Cardiovascular: No edema, Regular rate/rhythm, Normal S1 S2 Capillary refill: <2 Seconds Gastrointestinal: Normal bowel sounds, Distended Musculoskeletal: No clubbing, No swelling, No contractures Integumentary: No rashes, No breakdown, No significant lesion Urinary: Padilla catheter External genitalia: Deferred Rectal: Deferred Laboratory Data (last 24 hrs) 08/07/21 02:20: PT 16.0 H, INR 1.39, APTT 25.8 08/07/21 02:20: WBC 21.00 H*, Hgb 9.3 L, Hct 28.1 L, Plt Count 145 L 08/07/21 02:20: Sodium 140, Potassium 3.7, BUN 23 H, Creatinine 0.78, Glucose 60 L, Total Bilirubin 1.4 H, AST 83 H, ALT 51, Alkaline Phosphatase 658 H, Amylase 20 L, Lipase 11 L Conclusions/Impression: Antibiotics: Vancomycin Start: 08/07 Stop:-- Meropenem Start: 08/07 Stop: -- Lines: Right lower quadrant peritoneal indwelling catheter Right femoral central line Right AC peripheral line Assessment/plan Severe sepsis Severe sepsis noted on admission with hypotension, tachycardiac, elevated lactic acid, leukocytosis. Source unclear. Patient has history of pancreatic cancer and was recently treated at [facility] for sepsis related to chronic indwelling peritoneal catheter. Unknown if catheter was replaced or what antibiotics were given to the patient. Source likely either infected indwelling catheter or spontaneous bacterial peritonitis from ascites fluid. Ascites fluid culture and blood cultures pending. CT chest/abdomen/pelvis pending. Continue broad- spectrum IV antibiotic coverage at this time. Patient has several lines placed (listed above) sites are clean with no clinical signs infection Leukocytosis with left shift Elevated WBC in addition to elevated procalcitonin at 14.6. Continue to monitor. Protein caloric malnutrition Recommend supplemental Ensure protein drinks Anemia& thrombocytopenia Continue to monitor H&H Pancreatic cancer Medical management per primary team Continue monitor CBC and BMP Continue to monitor for signs of infection Plan of care discussed with Dr. Wilson Thank you for consultation
[2021-08-07] MEDS ORDERED: PANTOPRAZOLE 40 MG INJ ONE (13:11)
[2021-08-07] MEDS ORDERED: Meropenem 1 GM/100 ML BAG ONE ×2 (13:33→22:37)
[2021-08-07] MEDS: Meropenem 1 GM/100 ML BAG IV SCH ×2 (14:00→22:30)
[2021-08-07 14:44] LABS: BUN Blood Urea Nitrogen 29 mg/dL (7-18); Bicarbonate 17 mmol/L (21-32); Potassium 3.3 mmol/L (3.5-5.1); Sodium Level 142 mmol/L (136-145)
[2021-08-07 14:47] LABS: Glucose Level 26 mg/dL (74-106)
[2021-08-07] MEDS ORDERED: D50W 25 GM/50 ML SYRINGE IV ONE ×5 (15:13→18:43)
[2021-08-07] MEDS ORDERED: D50W 50 ML IV ONE (15:18)
[2021-08-07] MEDS: DEXTROSE 10%-WATER 500 ML IV SCH (18:47)
[2021-08-07] MEDS ORDERED: DEXTROSE 10%-WATER 500 ML IV ONE (18:57)
[2021-08-07] MEDS ORDERED: NA CHLORIDE 0.9% 500 ML IV ONE (19:07)
[2021-08-07] MEDS ORDERED: D10W 250 ML IV SCH (20:00)
[2021-08-08] MEDS ORDERED: D5W 1,000 ML IV ONE (00:10)
[2021-08-08] MEDS ORDERED: SODIUM BICARB 50 MEQ/50ML VIAL ONE (00:11)
[2021-08-08] MEDS: DEXTROSE 10%-WATER 500 ML IV SCH ×4 (01:56→23:23)
[2021-08-08] MEDS ORDERED: ALBUTEROL 2.5 MG/3 ML NEB SOL ONE ×3 (02:07→15:31)
[2021-08-08] MEDS ORDERED: IPRATROPIUM BROM 0.5MG/2.5ML ONE ×3 (02:07→15:31)
[2021-08-08] MEDS: IPRATROPIUM BROM 0.5MG/2.5ML NEB SCH ×4 (02:30→20:00)
[2021-08-08] MEDS: ALBUTEROL 2.5 MG/3 ML NEB SOL NEB SCH ×5 (02:30→20:00)
[2021-08-08] MEDS ORDERED: DEXTROSE 10%-WATER 500 ML IV ONE ×2 (02:44→11:47)
[2021-08-08 04:09] LABS: Absolute Lymphocytes (CBC) 0.3 K/uL (0.7-4.9); Basophils % 0.2 % (0-1.3); Hematocrit 21.6 % (39.6-49.0); Lymphocytes % 0.6 % (15.3-44.8); MPV 8.2 fL (7.6-11.3); RBC Red Blood Cell Count 2.33 M/uL (4.33-5.43)
[2021-08-08 04:30] LABS: BUN Blood Urea Nitrogen 28 mg/dL (7-18); Bicarbonate 23 mmol/L (21-32); Glucose Level 181 mg/dL (74-106); Magnesium 2.1 mg/dL (1.8-2.4); NT PRO-BNP 23701 pg/mL (<125); Phosphorus 3.7 mg/dL (2.5-4.9); Potassium 3.2 mmol/L (3.5-5.1); Sodium Level 140 mmol/L (136-145)
[2021-08-08 04:49] LABS: Basophilic Stippling 1+; Blood Morphology Comment NOTED (NOT SEEN); Platelet Estimate DECR
[2021-08-08] MEDS: Meropenem 1 GM/100 ML BAG IV SCH ×3 (05:00→21:00)
[2021-08-08] MEDS: HYDROCORTISONE SUC 100 MG INJ IV SCH ×3 (05:00→17:00)
[2021-08-08 05:59] LABS: Arterial Blood Carboxyhemoglob 0.6 % (0-1.5); Blood Gas Oxyhemoglobin 95.1 % (94-97); Blood O2 Saturation 96.4 % (92-98.5)
[2021-08-08] MEDS ORDERED: Meropenem 1 GM/100 ML BAG ONE (06:22)
[2021-08-08] MEDS ORDERED: HYDROCORTISONE SUC 100 MG INJ ONE ×2 (06:22→08:12)
[2021-08-08] MEDS ORDERED: PANTOPRAZOLE 40 MG INJ ONE (08:12)
[2021-08-08] MEDS ORDERED: ENOXAPARIN 30 MG/0.3 ML SQ ONE (08:13)
[2021-08-08] MEDS ORDERED: dexAMETHasone 10 MG/ML VIAL IV SCH (09:00)
[2021-08-08] MEDS: ENOXAPARIN 30 MG/0.3 ML SQ SCH (09:00)
[2021-08-08] MEDS: VANCOMYCIN/NS 1 gm 1 GM/250 ML BAG IVPB SCH ×2 (09:00→21:00)
[2021-08-08] MEDS: PANTOPRAZOLE 40 MG INJ IVP SCH (09:00)
[2021-08-08] MEDS ORDERED: VANCOMYCIN 1 GM/VIAL ONE (10:12)
[2021-08-08] MEDS ORDERED: NA CHLORIDE 0.9% 250 ML ONE ×2 (10:13→19:20)
[2021-08-08] MEDS: D5W 1,000 ML with NA BICARB 8.4% 150 MEQ IV SCH ×4 (10:30→22:00)
[2021-08-08] MEDS ORDERED: ERTAPENEM SODIUM 1 GM VIAL IVPB SCH (11:00)
--- NOTE | 2021-08-08 11:15 | P.PN ---
Subjective Date of Service: 08/08/21 Patient seen examined at bedside, on BiPAP sedated with Ativan. WBC continues strep tend, 45.5, with complete left shift. Hemoglobin 7.2, platelets 19. Review of Systems 10-point ROS is otherwise unremarkable Physical Examination - Vital Signs Temperature: 97.6 F Blood Pressure: 106/63 Pulse: 114 Respirations: 19 Pulse Ox (%): 96 - Studies Microbiology Data (last 24 hrs): 08/07/21 02:49 Blood - Blood Blood Culture Gram Stain - Final 08/07/21 02:49 Blood - Blood Gram Stain - Final 08/07/21 02:38 Blood - Blood Blood Culture Gram Stain - Final 08/07/21 02:38 Blood - Blood Gram Stain - Final 08/07/21 05:40 Body Fluid - Abdomen Gram Stain - Final Assessment And Plan - Plan Physical Exam: General: Cachectic, Other (Sedated, sleeping comfortably with BiPAP) HEENT: Atraumatic, Normocephalic Neck: Supple, 2+ carotid pulse no bruit Respiratory: Clear to auscultation bilaterally, Normal air movement Cardiovascular: No edema, Regular rate/rhythm, Normal S1 S2 Capillary refill: <2 Seconds Gastrointestinal: Normal bowel sounds, Distended Musculoskeletal: No clubbing, No swelling, No contractures Integumentary: No rashes, No breakdown, No significant lesion Urinary: Padilla catheter External genitalia: Deferred Rectal: Deferred Conclusions/Impression: Antibiotics: Vancomycin Start: 08/07 Stop:-- Meropenem Start: 08/07 Stop: -- Lines: Right lower quadrant peritoneal indwelling catheter Right femoral central line Right AC peripheral line Assessment/plan Severe sepsis Severe sepsis noted on admission with hypotension, tachycardiac, elevated lactic acid, leukocytosis. Patient has history of pancreatic cancer and was recently treated at [facility] for sepsis related to infected Port-A-Cath. Port-A-Cath was removed on the 11 of July. The port was placed last year in March when the patient was diagnosed with pancreatic cancer. During patient's hospitalization at [facility] a peritoneal indwelling catheter was placed. Catheter insertion site clean dry and intact. Source of infection likely either infected indwelling catheter or spontaneous bacterial peritonitis from ascites fluid. Ascites fluid culture pending. CT chest/abdomen/pelvis showing hypodense lesions in the liver, dilated biliary tree, pneumobilia. Continue broad-spectrum IV antibiotic coverage at this time. Patient has several lines placed (listed above) sites are clean with no clinical signs infection Bacteremia Blood cultures performed on 08/07 growing gram-positive cocci in pairs/chains in 4/4 bottles. Full culture report pending. Recommend ordering repeat blood cultures 48 hr after first set. Leukocytosis with left shift WBC 45.5 with complete left shift. Continue to monitor, patient afebrile. Protein caloric malnutrition Recommend supplemental Ensure protein drinks Anemia& thrombocytopenia Platelets 19, hemoglobin 7.2. Recommend transfusion if hemoglobin drops below 7.0. The me on thrombocytopenia exacerbated by sepsis and pancreatic cancer. Pancreatic cancer Medical management per primary team Continue monitor CBC and BMP Continue to monitor for signs of infection Plan of care discussed with Dr. Wilson Thank you for consultation
--- NOTE | 2021-08-08 13:42 | ECHO ---
HEIGHT: 5 ft 8 in WEIGHT: 130 lb 0.106 oz DATE OF STUDY: 08/08/[address]: Franchesca Recio MD 2-DIMENSIONAL: YES M.MODE: YES DOPPLER: YES COLOR FLOW: YES TDS: NO PORTABLE: NO DEFINITY: NO BUBBLE STUDY: NO DIAGNOSIS: LEFT VENTRICULAR FUNCTION CARDIAC HISTORY: CATHERIZATION: SURGERY: PROSTHETIC VALVE: PACEMAKER: MEASUREMENTS (cm) DIASTOLIC (NORMALS) SYSTOLIC (NORMALS) IVSd 1.1 (0.6-1.2) LA Diam 3.8 (1.9-4.0) LVEF 62% LVIDd 3.8 (3.5-5.7) LVIDs 2.5 (2.0-3.5) %FS 33% LVPWd 1.2 (0.6-1.2) Ao Diam 3.1 (2.0-3.7) 2 DIMENSIONAL ASSESSMENT: RIGHT ATRIUM: NORMAL LEFT ATRIUM: NORMAL RIGHT VENTRICLE: NORMAL LEFT VENTRICLE: NORMAL TRICUSPID VALVE: NORMAL MITRAL VALVE: NORMAL PULMONIC VALVE: NORMAL AORTIC VALVE: NORMAL PERICARDIAL EFFUSION: NONE AORTIC ROOT: NORMAL LEFT VENTRICULAR WALL MOTION: NORMAL LEFT VENTRICULAR SIZE AND FUNCTION. DOPPLER/COLOR FLOW: MILD TRICUSPID REGURGITATION. COMMENTS: NORMAL LEFT VENTRICULAR SIZE AND FUNCTION. MILD TRICUSPID REGURGITATION. NO EFFUSION. TECHNOLOGIST: Liu DOUGLAS
--- NOTE | 2021-08-08 14:52 | P.HP ---
Certification for Inpatient Patient admitted to: Inpatient With expected LOS: >2 Midnights Patient will require the following post-hospital care: None Practitioner: I am a practitioner with admitting privileges, knowledge of patient current condition, hospital course, and medical plan of care. Services: Services provided to patient in accordance with Admission requirements found in Title 42 Section 412.3 of the Code of Federal Regulations Patient History Date of Service: 08/07/21 Reason for admission: Septic shock History of Present Illness: Patient is a 61-year-old gentleman who came to the hospital with septic shock. Patient with a history of pancreatic cancer. Patient was diagnosed and it was felt he could have a Whipple procedure performed. However, when they went to performed the procedure they realize that the cancer was much more in fall then they thought and they were not able to do the surgery and he was closed on the operating table in the family was notified that patient would not be able to have surgery performed. Patient was started on a chemotherapy regimen. Patient is been receiving chemotherapy for over 6 months. Patient last received chemotherapy a few weeks ago. At afterwards he developed pneumonia and any ended up at [facility]. We did initiate transfer and [facility] did not accept because they did not feel they would be doing anything differently than our treatment for his septic shock. Patient has a [id number]. Patient has been having some respiratory distress and we placed him on BiPAP. W ill continue to wean off of BiPAP. Wean off levophed. Patient is severely acidotic as well. Continue with bicarb drip. Will go ahead and hydrate aggressively. IV albumin as needed. Monitor labs closely and check procalcitonin level. Pulmonary consultation for respiratory distress. Infectious disease consultation for concern for spontaneous bacterial peritonitis. Will check of fluid sample and send that the lab as well. Continue with broad-spectrum antibiotic coverage. Patient prognosis is poor. Allergies No Known Allergies Allergy (Unverified 08/07/21 11:07) - Past Medical/Surgical History Has patient received pneumonia vaccine in the past: No -: Pancreatic cancer Past Surgical History: Patient denies surgical history -: Taken to the operating room for Whipple procedure but unable to perform sx - Family History Father Family History: Reviewed- Non-Contributory - Social History Smoking Status: Unknown if ever smoked Alcohol use: No CD- Drugs: No Review of Systems 10-point ROS is otherwise unremarkable Physical Examination - Vital Signs Temperature: 97.6 F Blood Pressure: 106/63 Pulse: 114 Respirations: 19 Pulse Ox (%): 96 - Physical Exam General: Moderate distress, Confused, Other (lethargic) HEENT: Atraumatic, PERRLA, Mucous membr. moist/pink, EOMI, Sclerae nonicteric Neck: Supple, 2+ carotid pulse no bruit, No LAD, Without JVD or thyroid abnormality Respiratory: Diminished, Crackles/rales, Expiratory wheezes Cardiovascular: Regular rate/rhythm, Normal S1 S2, No murmurs Gastrointestinal: Normal bowel sounds, Soft and benign, Distended, Tenderness, Rebound Musculoskeletal: No clubbing, No swelling, No tenderness Integumentary: No rashes Neurological: Sensation intact, Cranial nerves 3-12 intact, Abnormal strength Lymphatics: No axilla or inguinal lymphadenopathy - Studies Microbiology Data (last 24 hrs): 08/07/21 02:49 Blood - Blood Blood Culture Gram Stain - Final 08/07/21 02:49 Blood - Blood Gram Stain - Final 08/07/21 02:38 Blood - Blood Blood Culture Gram Stain - Final 08/07/21 02:38 Blood - Blood Gram Stain - Final 08/07/21 05:40 Body Fluid - Abdomen Gram Stain - Final Assessment & Plan - Problems (Diagnosis) (1) Septic shock Current Visit: Yes Status: Acute (2) SBP (spontaneous bacterial peritonitis) Current Visit: Yes Status: Acute (3) Pancreatic cancer Current Visit: Yes Status: Acute (4) History of pneumonia Current Visit: Yes Status: Acute - Plan 1. Continue with IV hydration and bicarb drip 2. Continue with IV [id number] 3. Continue with pain control; medication for agitation 4. NPO; may start tube feeds 5. Infectious Disease and Pulmonary consultation 6. Serial H&H, and we will monitor CBC, BMP, LFTs and procalcitonin levels and panculture including peritoneal fluid 7. Spoke with family and prognosis is poor. They do not want patient to be intubated. Otherwise they do want everything else done 8. GI and DVT prophylaxis Discharge Plan: Home Plan to discharge in: Greater than 2 days - Advance Directives Does patient have a Living Will: No Does patient have a Durable POA for Healthcare: No - Code Status/Comfort Care Code Status Assessed: Yes Code Status: Do Not Intubate Critical Care: Yes Time Spent Managing PTS Care (In Minutes): 55
[2021-08-08] MEDS: LORazepam 2 MG/ML VIAL IV PRN (14:53)
[2021-08-08] MEDS ORDERED: LORazepam 2 MG/ML VIAL ONE ×2 (15:01→19:07)
[2021-08-08] MEDS ORDERED: POTASS/SODIUM PHOSPHATE 1 PKT POWD.PACK ONE (16:15)
[2021-08-08] MEDS ORDERED: chlordiazePOXIDE HCl 25 MG CAP ONE (16:15)
[2021-08-08] MEDS ORDERED: NA CHLORIDE 0.9% 500 ML ONE (16:47)
[2021-08-08 20:53] LABS: Absolute Lymphocytes (CBC) 0.1 K/uL (0.7-4.9); Basophils % 0.1 % (0-1.3); Hematocrit 35.8 % (39.6-49.0); Lymphocytes % 0.6 % (15.3-44.8); MPV 7.9 fL (7.6-11.3); RBC Red Blood Cell Count 3.94 M/uL (4.33-5.43)
[2021-08-09] MEDS ORDERED: Meropenem 1 GM/100 ML BAG ONE (00:05)
[2021-08-09] MEDS ORDERED: VANCOMYCIN 1 GM/VIAL ONE ×2 (00:05→21:24)
[2021-08-09] MEDS ORDERED: NA CHLORIDE 0.9% 250 ML ONE ×4 (00:05→23:05)
[2021-08-09] MEDS ORDERED: HYDROCORTISONE SUC 100 MG INJ ONE ×3 (00:05→10:51)
[2021-08-09] MEDS: HYDROCORTISONE SUC 100 MG INJ IV SCH ×3 (01:00→17:00)
[2021-08-09] MEDS: ALBUTEROL 2.5 MG/3 ML NEB SOL NEB SCH ×4 (02:00→19:52)
[2021-08-09] MEDS: IPRATROPIUM BROM 0.5MG/2.5ML NEB SCH ×4 (02:00→19:52)
[2021-08-09] MEDS ORDERED: ALBUTEROL 2.5 MG/3 ML NEB SOL ONE ×4 (02:19→20:15)
[2021-08-09] MEDS: Meropenem 1 GM/100 ML BAG IV SCH ×3 (05:00→21:00)
[2021-08-09] MEDS ORDERED: Meropenem 1000 MG/VIAL IV ONE (05:40)
[2021-08-09] MEDS ORDERED: NA CHLORIDE 0.9% 100 ML ONE ×2 (05:40→23:05)
[2021-08-09 05:58] LABS: Absolute Lymphocytes (CBC) 0.1 K/uL (0.7-4.9); Basophils % 0.2 % (0-1.3); Hematocrit 33.5 % (39.6-49.0); Lymphocytes % 1.2 % (15.3-44.8); MPV 9.1 fL (7.6-11.3); RBC Red Blood Cell Count 3.74 M/uL (4.33-5.43)
[2021-08-09 06:12] LABS: BUN Blood Urea Nitrogen 34 mg/dL (7-18); Bicarbonate 26 mmol/L (21-32); Glucose Level 123 mg/dL (74-106); Magnesium 2.1 mg/dL (1.8-2.4); Phosphorus 3.6 mg/dL (2.5-4.9); Potassium 3.5 mmol/L (3.5-5.1); Sodium Level 139 mmol/L (136-145)
[2021-08-09] MEDS: DEXTROSE 10%-WATER 500 ML IV SCH ×3 (06:32→20:50)
[2021-08-09 08:13] LABS: Blood Morphology Comment NOTED (NOT SEEN); Platelet Estimate DECR; White Blood Cell Scan OK (OK)
[2021-08-09 08:14] LABS: Burr Cells FEW; Target Cells FEW
[2021-08-09] MEDS ORDERED: DEXTROSE 10%-WATER 500 ML IV ONE ×2 (08:35→21:24)
[2021-08-09] MEDS ORDERED: IPRATROPIUM BROM 0.5MG/2.5ML ONE ×3 (08:44→20:15)
[2021-08-09] MEDS: VANCOMYCIN/NS 1 gm 1 GM/250 ML BAG IVPB SCH ×2 (09:00→21:00)
[2021-08-09] MEDS: ENOXAPARIN 30 MG/0.3 ML SQ SCH (09:00)
[2021-08-09] MEDS: PANTOPRAZOLE 40 MG INJ IVP SCH (09:00)
[2021-08-09] MEDS: D5W 1,000 ML with NA BICARB 8.4% 150 MEQ IV SCH ×2 (09:30)
[2021-08-09] MEDS ORDERED: LORazepam 2 MG/ML VIAL ONE (10:23)
[2021-08-09] MEDS ORDERED: HYDROMORPHONE HCL 0.5 MG/0.5 ML INJ ONE (10:24)
[2021-08-09] MEDS ORDERED: ZIPRASIDONE MESYLA 20 MG/VIAL IM ONE (10:24)
[2021-08-09] MEDS ORDERED: PANTOPRAZOLE 40 MG INJ ONE (10:51)
--- NOTE | 2021-08-09 11:43 | P.CNS ---
Date of Consult: 08/09/21 Reason for Consult: Septic shock Chief Complaint: Septic shock History of Present Illness: AGe 61 AW septic shock hxof pancreatic cancer Pt has a DAVE drain, S/p chemo/ on BIPAP unresponsive off levophed Allergies No Known Allergies Allergy (Unverified 08/07/21 11:07) - Past Medical/Surgical History -: Pancreatic cancer - Family History Father Family History: Reviewed- Non-Contributory - Social History Alcohol use: No CD- Drugs: No Review of Systems is unable to be obtained Physical Examination Temp Pulse Resp BP Pulse Ox 97.5 F 119 H 28 H 122/87 88 L 08/09/21 09:00 08/09/21 11:00 08/09/21 11:00 08/09/21 11:00 08/09/21 11:00 General: Unresponsive Respiratory: Clear to auscultation bilaterally Cardiovascular: Normal S1 S2, Edema Gastrointestinal: Other (DAVE drain) - Problems (1) Septic shock Current Visit: Yes Status: Acute Plan: age 61 AW septic shock. WBCnow normal. Pt DNR, Lactic acid and PCT elevated/severe thrombocytopenia/ BC pos G+cocci/ pt is HF/ prog poor stabel to tx to floorbialteral infiltrate L>R
--- NOTE | 2021-08-09 11:59 | P.PN ---
Subjective Date of Service: 08/09/21 Chief Complaint: Septic shock Patient seen examined at bedside, weaned off BiPAP, currently utilizing high- flow oxygen via nasal cannula. WBC within normal range, hemoglobin stabilized. Thrombocytopenia worsening. Review of Systems 10-point ROS is otherwise unremarkable Physical Examination - Vital Signs Temperature: 97.5 F Blood Pressure: 122/87 Pulse: 119 Respirations: 28 Pulse Ox (%): 88 - Studies Laboratory Last Values WBC 21.00 K/uL (4.3-10.9) H* 08/07/21 02:20 RBC 2.97 M/uL (4.33-5.43) L 08/07/21 02:20 Hgb 9.3 g/dL (13.6-17.9) L 08/07/21 02:20 Hct 28.1 % (39.6-49.0) L 08/07/21 02:20 MCV 94.5 fL (80-100) 08/07/21 02:20 MCH 31.3 pg (27.0-35.0) 08/07/21 02:20 MCHC 33.1 g/dL (32.0-36.0) 08/07/21 02:20 RDW 18.5 % (12.1-15.2) H 08/07/21 02:20 Plt Count 145 K/uL (152-406) L 08/07/21 02:20 MPV 8.0 fL (7.6-11.3) 08/07/21 02:20 Neutrophils % 99.2 % (41.7-73.7) H 08/07/21 02:20 Lymphocytes % 0.5 % (15.3-44.8) L 08/07/21 02:20 Monocytes % 0.2 % (3.3-12.3) L 08/07/21 02:20 Eosinophils % 0.0 % (0-4.4) 08/07/21 02:20 Basophils % 0.1 % (0-1.3) 08/07/21 02:20 Absolute Neutrophils 20.9 K/uL (1.8-8.0) H 08/07/21 02:20 Segmented Neutrophils 74 % (40-80) 08/07/21 02:20 Band Neutrophils 20 % (0-1) H* 08/07/21 02:20 Absolute Lymphocytes 0.1 K/uL (0.7-4.9) L 08/07/21 02:20 Lymphocytes 2 % (15-42) L 08/07/21 02:20 Monocytes 3 % (0-10) 08/07/21 02:20 Absolute Monocytes 0.0 K/uL (0.1-1.3) L 08/07/21 02:20 Absolute Eosinophils 0.0 K/uL (0-0.5) 08/07/21 02:20 Absolute Basophils 0.0 K/uL (0-0.5) 08/07/21 02:20 Reactive Lymphocytes 1 % 08/07/21 02:20 Platelet Estimate Adeq 08/07/21 02:20 Polychromasia 1+ 08/07/21 02:20 Morphology Comment Noted (NOT SEEN) 08/07/21 02:20 PT 16.0 SECONDS (9.5-12.5) H 08/07/21 02:20 INR 1.39 08/07/21 02:20 APTT 25.8 SECONDS (24.3-36.9) 08/07/21 02:20 pH 7.38 (7.35-7.45) 08/07/21 10:07 pCO2 22.9 mmHG (35-45) L 08/07/21 10:07 pO2 51.5 mmHG (75-100) L 08/07/21 10:07 HCO3 13.2 mmol/L (22-28) L 08/07/21 10:07 Base Excess -11.0 mmol/L 08/07/21 10:07 Oxyhemoglobin 79.4 % (94-97) L 08/07/21 10:07 ABG O2 Sat (Measured) 81.8 % (92-98.5) L 08/07/21 10:07 ABG Carboxyhemoglobin 1.6 % (0-1.5) H 08/07/21 10:07 ABG Methemoglobin 1.3 % (0-1.5) 08/07/21 10:07 Other Total Hgb 9.1 g/dl (12-18) L 08/07/21 10:07 Inspired O2 100.0 % 08/07/21 10:07 Sodium 140 mmol/L (136-145) 08/07/21 02:20 Potassium 3.7 mmol/L (3.5-5.1) 08/07/21 02:20 Chloride 106 mmol/L (98-107) 08/07/21 02:20 Carbon Dioxide 18 mmol/L (21-32) L 08/07/21 02:20 BUN 23 mg/dL (7-18) H 08/07/21 02:20 Creatinine 0.78 mg/dL (0.55-1.3) 08/07/21 02:20 Estimated GFR > 90 mL/min (=/>90) 08/07/21 02:20 Glucose 60 mg/dL (74-106) L 08/07/21 02:20 Lactic Acid 8.4 mmol/L (0.4-2.0) H* 08/07/21 05:30 Calcium 7.6 mg/dL (8.5-10.1) L 08/07/21 02:20 Total Bilirubin 1.4 mg/dL (0.2-1.0) H 08/07/21 02:20 Direct Bilirubin 1.1 mg/dL (0-0.2) H 08/07/21 02:20 AST 83 U/L (15-37) H 08/07/21 02:20 ALT 51 U/L (12-78) 08/07/21 02:20 Alkaline Phosphatase 658 U/L (45-117) H 08/07/21 02:20 Creatine Kinase 75 U/L (39-308) 08/07/21 02:20 CK-MB (CK-2) 2.7 ng/mL (1.0-3.6) 08/07/21 02:20 Rapid Troponin I 0.12 ng/mL (0.0-0.045) H 08/07/21 02:20 NT-Pro-B Natriuret Pep 6178 pg/mL (<125) H 08/07/21 02:20 Serum Total Protein 5.4 g/dL (6.4-8.2) L 08/07/21 02:20 Albumin 1.9 g/dL (3.4-5.0) L 08/07/21 02:20 Globulin 3.5 g/dL (2.3-3.5) 08/07/21 02:20 Albumin/Globulin Ratio 0.5 (1.1-1.8) L 08/07/21 02:20 Amylase 20 U/L (25-115) L 08/07/21 02:20 Lipase 11 U/L (73-393) L 08/07/21 02:20 Procalcitonin 14.60 ng/mL (<0.050) H 08/07/21 02:20 Urine RBC Cancelled 08/07/21 02:02 Urine WBC Cancelled 08/07/21 02:02 Ur Squamous Epith Cells Cancelled 08/07/21 02:02 Ur Urothelial Cells Cancelled 08/07/21 02:02 Calcium Oxalate Crystal Cancelled 08/07/21 02:02 Uric Acid Crystals Cancelled 08/07/21 02:02 Triple Phos Crystals Cancelled 08/07/21 02:02 Other Crystals Cancelled 08/07/21 02:02 Amorphous Sediment Cancelled 08/07/21 02:02 Glitter Cells Cancelled 08/07/21 02:02 Urine Bacteria Cancelled 08/07/21 02:02 Hyaline Casts Cancelled 08/07/21 02:02 Fine Granular Casts Cancelled 08/07/21 02:02 Coarse Granular Casts Cancelled 08/07/21 02:02 Waxy Casts Cancelled 08/07/21 02:02 RBC Casts Cancelled 08/07/21 02:02 WBC Casts Cancelled 08/07/21 02:02 Urine Mucus Cancelled 08/07/21 02:02 Urine Other Cancelled 08/07/21 02:02 Urine Trichomonas Cancelled 08/07/21 02:02 Urine Yeast Cancelled 08/07/21 02:02 Ur Yeast w Hyphae Cancelled 08/07/21 02:02 Urine Yeast (Budding) Cancelled 08/07/21 02:02 Urine Sperm Cancelled 08/07/21 02:02 Urine Culture Reflexed Cancelled 08/07/21 02:02 Urine Total Volume Cancelled 08/07/21 02:02 Fluid Source Peritoneal 08/07/21 05:40 Fluid Color Yellow (COLORLESS) H 08/07/21 05:40 Fluid Appearance Slt. turbid (CLEAR) H 08/07/21 05:40 Fld Supernatant Color (Not Xantho) 08/07/21 05:40 Fluid WBC 68 /mm^3 08/07/21 05:40 Fluid RBC 663 /mm^3 08/07/21 05:40 Fluid Neutrophils 39 % 08/07/21 05:40 Fluid Lymphocytes 31 % 08/07/21 05:40 Fluid Mononuclear Cell 30 % 08/07/21 05:40 Influenza Type A RNA Negative (NEGATIVE) 08/07/21 02:25 Influenza Type B RNA Negative (NEGATIVE) 08/07/21 02:25 SARS-CoV-2 RNA (RT-PCR) Negative (NEGATIVE) 08/07/21 02:25 Miscellaneous Test Sent 08/07/21 05:40 Microbiology Data (last 24 hrs): 08/07/21 05:40 Body Fluid - Abdomen Gram Stain - Final 08/07/21 02:38 Blood - Blood Blood Culture Gram Stain - Final 08/07/21 02:38 Blood - Blood Gram Stain - Final 08/07/21 02:49 Blood - Blood Blood Culture Gram Stain - Final 08/07/21 02:49 Blood - Blood Gram Stain - Final Assessment And Plan - Plan Physical Exam: General: Cachectic, jaundiced skin) HEENT: Atraumatic, Normocephalic Neck: Supple, 2+ carotid pulse no bruit Respiratory: Clear to auscultation bilaterally, Normal air movement Cardiovascular: No edema, Regular rate/rhythm, Normal S1 S2 Capillary refill: <2 Seconds Gastrointestinal: Normal bowel sounds, Distended, abdomen Abdelrahman, and no tenderness. Musculoskeletal: No clubbing, No swelling, No contractures Integumentary: No rashes, No breakdown, No significant lesion Extremities: Bilateral lower extremity 4+ pitting edema. Hematomas on bilateral upper extremities. Urinary: Padilla catheter External genitalia: Deferred Rectal: Deferred Conclusions/Impression: Antibiotics: Vancomycin Start: 08/07 Stop:-- Meropenem Start: 08/07 Stop: -- Lines: Right lower quadrant peritoneal indwelling catheter Right femoral central line Right AC peripheral line Assessment/plan Severe sepsis Severe sepsis noted on admission with hypotension, tachycardiac, elevated lactic acid, leukocytosis. Patient has history of pancreatic cancer and was recently treated at [facility] for sepsis related to infected Port-A-Cath. Port-A-Cath was removed on the 11 of July. The port was placed last year in March when the patient was diagnosed with pancreatic cancer. During patient's hospitalization at [facility] a peritoneal indwelling catheter was placed. Catheter insertion site clean dry and intact. Source of infection likely either infected indwelling catheter or spontaneous bacterial peritonitis from ascites fluid. Ascites fluid culture pending. CT chest/abdomen/pelvis showing hypodense lesions in the liver, dilated biliary tree, pneumobilia. Continue broad-spectrum IV antibiotic coverage at this time. Vancomycin trough taken on 08/08 16.7, and therapeutic range. Renal function stable. Patient has several lines placed (listed above) sites are clean with no clinical signs infection Bacteremia Blood cultures performed on 08/07 growing non beta hemolytic strep in pairs/chains in 4/4 bottles. Full culture report pending. Repeat blood cultures ordered on 08/09 Leukocytosis with left shift WBC stabilized Protein caloric malnutrition Recommend supplemental Ensure protein drinks Anemia& thrombocytopenia Patient received transfusion, hemoglobin stabilized. Thrombocytopenia worsening. Recommend transfusion if hemoglobin drops below 7.0. The thrombocytopenia and anemia exacerbated by sepsis and pancreatic cancer. Pancreatic cancer Medical management per primary team Continue monitor CBC and BMP Continue to monitor for signs of infection Plan of care discussed with Dr. Wilson Thank you for consultation
[2021-08-09] MEDS: ALBUMIN HUMAN 25% 12.5 GM, FUROSEMIDE 100 MG in NA CHLORIDE 0.9% 40 ML IV SCH ×2 (15:00→20:00)
[2021-08-09] MEDS: D5W 1,000 ML with NA BICARB 8.4% 50 MEQ IV SCH ×2 (15:00)
--- NOTE | 2021-08-09 15:12 | RAD REPORT ---
EXAM DESCRIPTION: RAD - Chest Single View - 08/09/2021 3:01 pm CLINICAL HISTORY: DYSPNEA COMPARISON: Chest Single View dated 08/07/2021; Chest Pa And Lat (2 Views) dated 05/07/2018; Chest For Pe Angio dated 08/07/2021 FINDINGS: Lines: None. Lungs: Decreased lung volumes with increased bilateral perihilar opacities. Pleural: Difficult to exclude a small left effusion. Cardiac: Cardiomegaly. Bones: No acute fractures. Other: IMPRESSION: Decreased lung volumes with increased perihilar opacities that may represent pulmonary e lizy, less likely pneumonia.
[2021-08-09 17:29] LABS: Protime INR 1.34
[2021-08-09] MEDS: JUVEN PACKET PO SCH (21:00)
[2021-08-09] MEDS: ENSURE ENLIVE 237 ML CAN PO SCH (21:00)
[2021-08-09] MEDS ORDERED: ALBUMIN HUMAN 25% 50 ML IV ONE (21:25)
[2021-08-09] MEDS ORDERED: Meropenem 500 MG/100 ML BAG ONE (21:25)
[2021-08-10] MEDS: ALBUMIN HUMAN 25% 12.5 GM, FUROSEMIDE 100 MG in NA CHLORIDE 0.9% 40 ML IV SCH ×5 (01:00→21:00)
[2021-08-10] MEDS: HYDROCORTISONE SUC 100 MG INJ IV SCH ×3 (01:00→17:00)
[2021-08-10] MEDS: D5W 1,000 ML with NA BICARB 8.4% 50 MEQ IV SCH ×6 (01:30→22:08)
[2021-08-10] MEDS: IPRATROPIUM BROM 0.5MG/2.5ML NEB SCH ×4 (01:31→19:25)
[2021-08-10] MEDS: ALBUTEROL 2.5 MG/3 ML NEB SOL NEB SCH ×4 (01:31→19:25)
[2021-08-10] MEDS ORDERED: ALBUTEROL 2.5 MG/3 ML NEB SOL ONE ×4 (01:57→19:41)
[2021-08-10] MEDS ORDERED: IPRATROPIUM BROM 0.5MG/2.5ML ONE ×4 (01:58→19:41)
[2021-08-10] MEDS: LORazepam 2 MG/ML VIAL IV PRN ×2 (02:14→16:30)
[2021-08-10] MEDS ORDERED: LORazepam 2 MG/ML VIAL ONE ×2 (02:34→17:26)
[2021-08-10] MEDS ORDERED: HYDROCORTISONE SUC 100 MG INJ ONE ×3 (02:34→17:12)
[2021-08-10] MEDS: DEXTROSE 10%-WATER 500 ML IV SCH ×3 (03:59→18:17)
[2021-08-10] MEDS: Meropenem 1 GM/100 ML BAG IV SCH (05:00)
[2021-08-10 05:14] LABS: Absolute Lymphocytes (CBC) 0.1 K/uL (0.7-4.9); Basophils % 0.2 % (0-1.3); Hematocrit 29.6 % (39.6-49.0); Lymphocytes % 1.4 % (15.3-44.8); MPV 10.6 fL (7.6-11.3); RBC Red Blood Cell Count 3.29 M/uL (4.33-5.43)
[2021-08-10 05:31] LABS: ALT/SGPT 116 U/L (12-78); AST/SGOT 93 U/L (15-37); Albumin 2.2 g/dL (3.4-5.0); Alkaline Phosphatase 271 U/L (45-117); BUN Blood Urea Nitrogen 32 mg/dL (7-18); Bicarbonate 33 mmol/L (21-32); Bilirubin Total 3.5 mg/dL (0.2-1.0); Glucose Level 148 mg/dL (74-106); Magnesium 1.9 mg/dL (1.8-2.4); NT PRO-BNP 4619 pg/mL (<125); Phosphorus 2.7 mg/dL (2.5-4.9); Sodium Level 139 mmol/L (136-145)
[2021-08-10 05:34] LABS: Potassium 2.8 mmol/L (3.5-5.1)
[2021-08-10] MEDS: KCL 20 MEQ/100 mL IVPB 20 MEQ/100 ML BAG IV SCH ×2 (06:14→09:00)
[2021-08-10] MEDS ORDERED: KCL 20 MEQ/100 mL IVPB 20 MEQ/100 ML BAG IV ONE ×2 (06:19→09:18)
[2021-08-10] MEDS ORDERED: Meropenem 1 GM/100 ML BAG ONE (06:43)
[2021-08-10] MEDS: ENOXAPARIN 30 MG/0.3 ML SQ SCH (09:00)
[2021-08-10] MEDS: JUVEN PACKET PO SCH ×2 (09:00→21:00)
[2021-08-10] MEDS: ENSURE ENLIVE 237 ML CAN PO SCH ×2 (09:00→21:00)
[2021-08-10] MEDS: PANTOPRAZOLE 40 MG INJ IVP SCH (09:00)
[2021-08-10] MEDS: VANCOMYCIN/NS 1 gm 1 GM/250 ML BAG IVPB SCH (09:00)
[2021-08-10] MEDS ORDERED: PANTOPRAZOLE 40 MG INJ ONE (09:17)
--- NOTE | 2021-08-10 11:23 | P.PN ---
Subjective Date of Service: 08/10/21 Chief Complaint: Septic shock Patient seen examined at bedside, placed back on BiPAP overnight. Review of Systems 10-point ROS is otherwise unremarkable Physical Examination - Vital Signs Temperature: 97.8 F Blood Pressure: 116/75 Pulse: 109 Respirations: 28 Pulse Ox (%): 97 - Studies Laboratory Last Values WBC 21.00 K/uL (4.3-10.9) H* 08/07/21 02:20 RBC 2.97 M/uL (4.33-5.43) L 08/07/21 02:20 Hgb 9.3 g/dL (13.6-17.9) L 08/07/21 02:20 Hct 28.1 % (39.6-49.0) L 08/07/21 02:20 MCV 94.5 fL (80-100) 08/07/21 02:20 MCH 31.3 pg (27.0-35.0) 08/07/21 02:20 MCHC 33.1 g/dL (32.0-36.0) 08/07/21 02:20 RDW 18.5 % (12.1-15.2) H 08/07/21 02:20 Plt Count 145 K/uL (152-406) L 08/07/21 02:20 MPV 8.0 fL (7.6-11.3) 08/07/21 02:20 Neutrophils % 99.2 % (41.7-73.7) H 08/07/21 02:20 Lymphocytes % 0.5 % (15.3-44.8) L 08/07/21 02:20 Monocytes % 0.2 % (3.3-12.3) L 08/07/21 02:20 Eosinophils % 0.0 % (0-4.4) 08/07/21 02:20 Basophils % 0.1 % (0-1.3) 08/07/21 02:20 Absolute Neutrophils 20.9 K/uL (1.8-8.0) H 08/07/21 02:20 Segmented Neutrophils 74 % (40-80) 08/07/21 02:20 Band Neutrophils 20 % (0-1) H* 08/07/21 02:20 Absolute Lymphocytes 0.1 K/uL (0.7-4.9) L 08/07/21 02:20 Lymphocytes 2 % (15-42) L 08/07/21 02:20 Monocytes 3 % (0-10) 08/07/21 02:20 Absolute Monocytes 0.0 K/uL (0.1-1.3) L 08/07/21 02:20 Absolute Eosinophils 0.0 K/uL (0-0.5) 08/07/21 02:20 Absolute Basophils 0.0 K/uL (0-0.5) 08/07/21 02:20 Reactive Lymphocytes 1 % 08/07/21 02:20 Platelet Estimate Adeq 08/07/21 02:20 Polychromasia 1+ 08/07/21 02:20 Morphology Comment Noted (NOT SEEN) 08/07/21 02:20 PT 16.0 SECONDS (9.5-12.5) H 08/07/21 02:20 INR 1.39 08/07/21 02:20 APTT 25.8 SECONDS (24.3-36.9) 08/07/21 02:20 pH 7.38 (7.35-7.45) 08/07/21 10:07 pCO2 22.9 mmHG (35-45) L 08/07/21 10:07 pO2 51.5 mmHG (75-100) L 08/07/21 10:07 HCO3 13.2 mmol/L (22-28) L 08/07/21 10:07 Base Excess -11.0 mmol/L 08/07/21 10:07 Oxyhemoglobin 79.4 % (94-97) L 08/07/21 10:07 ABG O2 Sat (Measured) 81.8 % (92-98.5) L 08/07/21 10:07 ABG Carboxyhemoglobin 1.6 % (0-1.5) H 08/07/21 10:07 ABG Methemoglobin 1.3 % (0-1.5) 08/07/21 10:07 Other Total Hgb 9.1 g/dl (12-18) L 08/07/21 10:07 Inspired O2 100.0 % 08/07/21 10:07 Sodium 140 mmol/L (136-145) 08/07/21 02:20 Potassium 3.7 mmol/L (3.5-5.1) 08/07/21 02:20 Chloride 106 mmol/L (98-107) 08/07/21 02:20 Carbon Dioxide 18 mmol/L (21-32) L 08/07/21 02:20 BUN 23 mg/dL (7-18) H 08/07/21 02:20 Creatinine 0.78 mg/dL (0.55-1.3) 08/07/21 02:20 Estimated GFR > 90 mL/min (=/>90) 08/07/21 02:20 Glucose 60 mg/dL (74-106) L 08/07/21 02:20 Lactic Acid 8.4 mmol/L (0.4-2.0) H* 08/07/21 05:30 Calcium 7.6 mg/dL (8.5-10.1) L 08/07/21 02:20 Total Bilirubin 1.4 mg/dL (0.2-1.0) H 08/07/21 02:20 Direct Bilirubin 1.1 mg/dL (0-0.2) H 08/07/21 02:20 AST 83 U/L (15-37) H 08/07/21 02:20 ALT 51 U/L (12-78) 08/07/21 02:20 Alkaline Phosphatase 658 U/L (45-117) H 08/07/21 02:20 Creatine Kinase 75 U/L (39-308) 08/07/21 02:20 CK-MB (CK-2) 2.7 ng/mL (1.0-3.6) 08/07/21 02:20 Rapid Troponin I 0.12 ng/mL (0.0-0.045) H 08/07/21 02:20 NT-Pro-B Natriuret Pep 6178 pg/mL (<125) H 08/07/21 02:20 Serum Total Protein 5.4 g/dL (6.4-8.2) L 08/07/21 02:20 Albumin 1.9 g/dL (3.4-5.0) L 08/07/21 02:20 Globulin 3.5 g/dL (2.3-3.5) 08/07/21 02:20 Albumin/Globulin Ratio 0.5 (1.1-1.8) L 08/07/21 02:20 Amylase 20 U/L (25-115) L 08/07/21 02:20 Lipase 11 U/L (73-393) L 08/07/21 02:20 Procalcitonin 14.60 ng/mL (<0.050) H 08/07/21 02:20 Urine RBC Cancelled 08/07/21 02:02 Urine WBC Cancelled 08/07/21 02:02 Ur Squamous Epith Cells Cancelled 08/07/21 02:02 Ur Urothelial Cells Cancelled 08/07/21 02:02 Calcium Oxalate Crystal Cancelled 08/07/21 02:02 Uric Acid Crystals Cancelled 08/07/21 02:02 Triple Phos Crystals Cancelled 08/07/21 02:02 Other Crystals Cancelled 08/07/21 02:02 Amorphous Sediment Cancelled 08/07/21 02:02 Glitter Cells Cancelled 08/07/21 02:02 Urine Bacteria Cancelled 08/07/21 02:02 Hyaline Casts Cancelled 08/07/21 02:02 Fine Granular Casts Cancelled 08/07/21 02:02 Coarse Granular Casts Cancelled 08/07/21 02:02 Waxy Casts Cancelled 08/07/21 02:02 RBC Casts Cancelled 08/07/21 02:02 WBC Casts Cancelled 08/07/21 02:02 Urine Mucus Cancelled 08/07/21 02:02 Urine Other Cancelled 08/07/21 02:02 Urine Trichomonas Cancelled 08/07/21 02:02 Urine Yeast Cancelled 08/07/21 02:02 Ur Yeast w Hyphae Cancelled 08/07/21 02:02 Urine Yeast (Budding) Cancelled 08/07/21 02:02 Urine Sperm Cancelled 08/07/21 02:02 Urine Culture Reflexed Cancelled 08/07/21 02:02 Urine Total Volume Cancelled 08/07/21 02:02 Fluid Source Peritoneal 08/07/21 05:40 Fluid Color Yellow (COLORLESS) H 08/07/21 05:40 Fluid Appearance Slt. turbid (CLEAR) H 08/07/21 05:40 Fld Supernatant Color (Not Xantho) 08/07/21 05:40 Fluid WBC 68 /mm^3 08/07/21 05:40 Fluid RBC 663 /mm^3 08/07/21 05:40 Fluid Neutrophils 39 % 08/07/21 05:40 Fluid Lymphocytes 31 % 08/07/21 05:40 Fluid Mononuclear Cell 30 % 08/07/21 05:40 Influenza Type A RNA Negative (NEGATIVE) 08/07/21 02:25 Influenza Type B RNA Negative (NEGATIVE) 08/07/21 02:25 SARS-CoV-2 RNA (RT-PCR) Negative (NEGATIVE) 08/07/21 02:25 Miscellaneous Test Sent 08/07/21 05:40 Microbiology Data (last 24 hrs): 08/07/21 02:38 Blood - Blood Blood Culture Gram Stain - Final 08/07/21 02:38 Blood - Blood Gram Stain - Final 08/07/21 02:49 Blood - Blood Blood Culture Gram Stain - Final 08/07/21 02:49 Blood - Blood Gram Stain - Final 08/07/21 05:40 Body Fluid - Abdomen Gram Stain - Final Assessment And Plan - Plan Physical Exam: General: Cachectic, jaundiced skin) HEENT: Atraumatic, Normocephalic Neck: Supple, 2+ carotid pulse no bruit Respiratory: Clear to auscultation bilaterally, Normal air movement Cardiovascular: No edema, Regular rate/rhythm, Normal S1 S2 Capillary refill: <2 Seconds Gastrointestinal: Normal bowel sounds, Distended, abdomen Abdelrahman, and no tenderness. Musculoskeletal: No clubbing, No swelling, No contractures Integumentary: No rashes, No breakdown, No significant lesion Extremities: Bilateral lower extremity 4+ pitting edema. Hematomas on bilateral upper extremities. Urinary: Padilla catheter External genitalia: Deferred Rectal: Deferred Conclusions/Impression: Antibiotics: current: ampicillin start: 08/10 stop: -- DC: Vancomycin Start: 08/07 Stop: 08/10 Meropenem Start: 08/07 Stop: 08/10 Lines: Right lower quadrant peritoneal indwelling catheter Right femoral central line Right AC peripheral line Assessment/plan Severe sepsis Severe sepsis noted on admission with hypotension, tachycardiac, elevated lactic acid, leukocytosis. Patient has history of pancreatic cancer and was recently treated at [facility] for sepsis related to infected Port-A-Cath. Port-A-Cath was removed on the 11 of July. The port was placed last year in March when the patient was diagnosed with pancreatic cancer. During patient's hospitalization at [facility] a peritoneal indwelling catheter was placed. Catheter insertion site clean dry and intact. Source of infection likely either infected indwelling catheter or spontaneous bacterial peritonitis from ascites fluid. Ascites fluid culture gorwing normal skin jose however does not rule out SBP. CT chest/abdomen/pelvis showing hypodense lesions in the liver, dilated biliary tree, pneumobilia. Patient has several lines placed (listed above) sites are clean with no clinical signs infection Bacteremia Blood cultures performed on 08/07 growing Enterococcus sensitive to ampicillin with an MAXIMUS of less than 2. Antibiotics deescalated from vancomycin and merum to ampicillin on 08/10. Repeat blood cultures taken on 08/09 pending. Patient will need antibiotics for two weeks following a negative blood culture report. Echo negative for vegetation. Leukocytosis with left shift WBC stabilized Protein caloric malnutrition Recommend supplemental Ensure protein drinks Anemia& thrombocytopenia Patient received transfusion, hemoglobin stabilized. Thrombocytopenia worsening. Recommend transfusion if hemoglobin drops below 7.0. The thrombocytopenia and anemia exacerbated by sepsis and pancreatic cancer. Pancreatic cancer Medical management per primary team Continue monitor CBC and BMP Continue to monitor for signs of infection Plan of care discussed with Dr. Wilson Thank you for consultation
[2021-08-10] MEDS ORDERED: AMPICILLIN SODIUM 2 GM in NA CHLORIDE 0.9% 100 ML IVPB SCH (13:00)
[2021-08-10] MEDS: AMPICILLIN SODIUM 2 GM in NA CHLORIDE 0.9% 100 ML IVPB SCH ×3 (17:00→22:01)
--- NOTE | 2021-08-10 20:15 | RAD REPORT ---
EXAM DESCRIPTION: CT - Head Brain Wo Cont - 08/10/2021 8:07 pm CLINICAL HISTORY: DIC Headache, drowsiness COMPARISON: No comparisons TECHNIQUE: All CT scans are performed using dose optimization technique as appropriate and may inclu de automated exposure control or mA/KV adjustment according to patient size. FINDINGS: No intracranial hemorrhage, hydrocephalus or extra-axial fluid collection.No areas of brai n edema or evidence of midline shift. The paranasal sinuses and mastoids are clear. The calvarium is intact. IMPRESSION: No acute intracranial abnormality.
--- NOTE | 2021-08-10 20:20 | RAD REPORT ---
EXAM DESCRIPTION: CT - Chest Abd Pelvis Wo Con - 08/10/2021 8:07 pm CLINICAL HISTORY: Chest and abdomen pain. DIC COMPARISON: Chest For Pe Angio dated 08/07/2021; Abdomen Pelvis W Contrast dated 08/07/2021; Chest S silvia View dated 08/09/2021 TECHNIQUE: A limited noncontrast study is submitted. All CT scans are performed using dose optimization technique as appropriate and may include automated exposure control or mA/KV adjustment according to patient size. FINDINGS: Moderately large lung consolidations are present bilaterally in a relatively diffuse sondra r most compatible with pneumonia.No pleural or pericardial effusion.No intrathoracic adenopathy. Moderate to large volume ascites. A pigtail stent is noted in the right lower quadrant. Moderate stool is seen throughout the colon. Thickening of the colon crandall noted particularly in the right upper quadrant. Distention of the stomach is present. Biliary stent is noted. The spleen, adre nal glands and kidneys show no acute process. No worrisome osseous finding. IMPRESSION: Extensive bilateral lung consolidations are present most compatible with bilateral pneum onia.Underlying COVID-19 infection is a possibility. Large volume of ascites with a drainage catheter in place in the right lower quadrant. Colon wall thickening may indicate a nonspecific colitis.
[2021-08-10] MEDS ORDERED: AMPICILLIN/SULBACTAM 3GM/VIAL ONE (21:54)
[2021-08-10] MEDS ORDERED: AMPICILLIN SODIUM 500 MG VIAL ONE (21:57)
[2021-08-10] MEDS ORDERED: AMPICILLIN/SULBACT 1.5GM VIAL ONE (21:57)
[2021-08-10] MEDS ORDERED: NA CHLORIDE 0.9% 100 ML ONE (21:58)
[2021-08-10] MEDS ORDERED: DEXTROSE 10%-WATER 500 ML IV ONE (22:35)
[2021-08-11] MEDS: HYDROCORTISONE SUC 100 MG INJ IV SCH ×3 (01:00→20:00)
[2021-08-11] MEDS: DEXTROSE 10%-WATER 500 ML IV SCH ×4 (01:26→22:53)
[2021-08-11] MEDS: IPRATROPIUM BROM 0.5MG/2.5ML NEB SCH ×4 (02:00→19:11)
[2021-08-11] MEDS: ALBUTEROL 2.5 MG/3 ML NEB SOL NEB SCH ×4 (02:00→19:11)
[2021-08-11] MEDS ORDERED: IPRATROPIUM BROM 0.5MG/2.5ML ONE ×4 (02:22→19:35)
[2021-08-11] MEDS ORDERED: ALBUTEROL 2.5 MG/3 ML NEB SOL ONE ×4 (02:22→19:35)
[2021-08-11] MEDS ORDERED: HYDROCORTISONE SUC 100 MG INJ ONE ×3 (02:32→20:00)
[2021-08-11] MEDS ORDERED: DEXTROSE 10%-WATER 500 ML IV ONE ×3 (02:33→18:20)
[2021-08-11] MEDS: AMPICILLIN SODIUM 2 GM in NA CHLORIDE 0.9% 100 ML IVPB SCH ×5 (05:00→20:00)
[2021-08-11 06:26] LABS: Hematocrit 32.8 % (39.6-49.0); MPV 10.5 fL (7.6-11.3); RBC Red Blood Cell Count 3.62 M/uL (4.33-5.43)
[2021-08-11 06:37] LABS: ALT/SGPT 91 U/L (12-78); AST/SGOT 66 U/L (15-37); Albumin 2.6 g/dL (3.4-5.0); Alkaline Phosphatase 318 U/L (45-117); BUN Blood Urea Nitrogen 28 mg/dL (7-18); Bicarbonate 36 mmol/L (21-32); Bilirubin Total 4.2 mg/dL (0.2-1.0); Glucose Level 151 mg/dL (74-106); Magnesium 1.9 mg/dL (1.8-2.4); NT PRO-BNP 3573 pg/mL (<125); Phosphorus 2.5 mg/dL (2.5-4.9); Protein, Total 5.7 g/dL (6.4-8.2); Sodium Level 138 mmol/L (136-145)
[2021-08-11 06:41] LABS: Potassium 2.7 mmol/L (3.5-5.1)
[2021-08-11] MEDS ORDERED: AMPICILLIN SODIUM 500 MG VIAL ONE (06:41)
[2021-08-11] MEDS ORDERED: NA CHLORIDE 0.9% 100 ML ONE (06:41)
[2021-08-11] MEDS ORDERED: AMPICILLIN/SULBACT 1.5GM VIAL ONE (06:41)
[2021-08-11] MEDS ORDERED: KCL 20 MEQ/100 mL IVPB 20 MEQ/100 ML BAG IV ONE (07:11)
--- NOTE | 2021-08-11 07:22 | RAD REPORT ---
EXAM DESCRIPTION: [place] Single View08/11/2021 6:03 am CLINICAL HISTORY: Chest pain COMPARISON: August 10, 2021 FINDINGS: Worsening in diffuse bilateral pulmonary opacities. The heart is normal size IMPRESSION: Worsening in the bilateral pneumonia which is marked
[2021-08-11] MEDS ORDERED: KCL 20 MEQ/100 mL IVPB 20 MEQ/100 ML BAG IV SCH (08:00)
[2021-08-11] MEDS ORDERED: PANTOPRAZOLE 40 MG INJ ONE (08:27)
[2021-08-11] MEDS ORDERED: KCL 20 MEQ/100 mL IVPB 60 MEQ/300 ML BAG IV ONE (08:27)
[2021-08-11] MEDS ORDERED: D10W 500 ML IV ONE (08:28)
[2021-08-11 08:38] LABS: Blood Morphology Comment NOT SEEN (NOT SEEN); Platelet Estimate DECR; Toxic Granulation PRESENT
[2021-08-11] MEDS: PANTOPRAZOLE 40 MG INJ IVP SCH (09:00)
[2021-08-11] MEDS: ENOXAPARIN 30 MG/0.3 ML SQ SCH (09:00)
[2021-08-11] MEDS: ENSURE ENLIVE 237 ML CAN PO SCH (09:00)
[2021-08-11] MEDS: JUVEN PACKET PO SCH (09:00)
[2021-08-11] MEDS: D5W 1,000 ML with NA BICARB 8.4% 50 MEQ IV SCH ×2 (09:00)
[2021-08-11] MEDS ORDERED: LORazepam 2 MG/ML VIAL IV ONE (09:20)
[2021-08-11] MEDS ORDERED: LORazepam 2 MG/ML VIAL ONE (09:26)
--- NOTE | 2021-08-11 10:33 | P.PN ---
Subjective Date of Service: 08/08/21 Patient was significant leukocytosis. Clinically patient is declining. Started on bicarb drip. Acidosis still pretty significant. Will drain another L of peritoneal fluid today. Repeat chest x-ray. Continue with broad-spectrum antibiotic coverage. Awaiting pulmonary consultation and infectious disease consultation. Patient remains on Levophed drip. Slowly weaning this down. Review of Systems is unable to be obtained Physical Examination - Vital Signs Temperature: 97.6 F Blood Pressure: 106/63 Pulse: 114 Respirations: 19 Pulse Ox (%): 96 - Physical Exam General: Confused Respiratory: Diminished, Crackles/rales Cardiovascular: Regular rate/rhythm, Normal S1 S2, No murmurs Gastrointestinal: Normal bowel sounds, Soft and benign, Non-distended, No tenderness Musculoskeletal: No clubbing, No swelling Neurological: Sensation intact, Cranial nerves 3-12 intact - Studies Microbiology Data (last 24 hrs): 08/07/21 02:38 Blood - Blood Aerobic Blood Culture - Final Enterococcus Faecalis 08/07/21 02:38 Blood - Blood Blood Culture Gram Stain - Final 08/07/21 02:38 Blood - Blood Anaerobic Blood Culture - Final Enterococcus Faecalis 08/07/21 02:38 Blood - Blood Gram Stain - Final 08/07/21 05:40 Body Fluid - Abdomen Gram Stain - Final 08/07/21 05:40 Body Fluid - Abdomen Culture & Sensitivity - Final 08/07/21 02:49 Blood - Blood Blood Culture Gram Stain - Final 08/07/21 02:49 Blood - Blood Gram Stain - Final Assessment & Plan - Problems (Diagnosis) (1) Septic shock Current Visit: Yes Status: Acute (2) SBP (spontaneous bacterial peritonitis) Current Visit: Yes Status: Acute (3) Pancreatic cancer Current Visit: Yes Status: Acute (4) History of pneumonia Current Visit: Yes Status: Acute - Plan Continue with plan of care as mentioned below: 1. Continue with IV hydration and bicarb drip 2. Continue with IV [id number]; cultures pending 3. Continue with pain control; medication for agitation 4. NPO; may start tube feeds 5. Infectious Disease and Pulmonary consultation 6. Serial H&H, and we will monitor CBC, BMP, LFTs and procalcitonin levels and panculture including peritoneal fluid 7. Spoke with family and prognosis is poor. They do not want patient to be intubated. Otherwise they do want everything else done 8. GI and DVT prophylaxis Plan to discharge in: Greater than 2 days - Advance Directives Does patient have a Living Will: No Does patient have a Durable POA for Healthcare: No - Code Status/Comfort Care Code Status Assessed: Yes Code Status: Do Not Intubate Critical Care: Yes Time Spent Managing PTS Care (In Minutes): 55
--- NOTE | 2021-08-11 10:38 | P.PN ---
Date of Service: 08/09/21 Subjective Patient no significant improvement. Patient has declined even more neurologically. When he is more stable will try to get imaging studies including CT of the brain and chest abdomen and pelvis. Patient is off the Levophed. May be a little volume overloaded and oxygenation is worsened. Will diurese Review of Systems is unable to be obtained Physical Examination - Vital Signs Reviewed - Physical Exam General: Confused; BiPAP facial mass Respiratory: Diminished, Crackles/rales Cardiovascular: Regular rate/rhythm, Normal S1 S2, No murmurs Gastrointestinal: Hypoactive bowel sounds, Soft and benign, still with some tenderness and distention Musculoskeletal: No clubbing, minimal swelling Neurological: Sensation intact, Cranial nerves 3-12 intact Assessment & Plan - Problems (Diagnosis) (1) Septic shock Current Visit: Yes Status: Acute (2) SBP (spontaneous bacterial peritonitis) Current Visit: Yes Status: Acute (3) Pancreatic cancer Current Visit: Yes Status: Acute (4) Bacterial pneumonia Current Visit: Yes Status: Acute (5) Anemia/thrombocytopenia/leukocytosis Current Visit: Yes Status: Acute - Plan Continue with plan of care as mentioned below: 1. Patient appears to be slightly volume overloaded. We have given platelets a nd blood transfusion. May need diuresing gently since off of Levophed 2. Continue with IV [id number]; cultures pending 3. Continue with pain control; medication for agitation 4. NPO; once we get weaned off of BiPAP will start tube feedings 5. Infectious Disease and Pulmonary consultation appreciated 6. Continue monitoring labs in awaiting cultures; gram-positive growing in blood. On vancomycin and meropenem 7. Spoke with family and prognosis is poor. They do not want patient to be intubated. Otherwise they do want everything else done 8. GI and DVT prophylaxis Plan to discharge in: Greater than 2 days - Advance Directives Does patient have a Living Will: No Does patient have a Durable POA for Healthcare: No - Code Status/Comfort Care Code Status Assessed: Yes Code Status: Do Not Intubate Critical Care: Yes Time Spent Managing PTS Care (In Minutes): 55
--- NOTE | 2021-08-11 10:44 | P.PN ---
Date of Service: 08/10/21 Subjective Patient mentation is still diminished. Spoke with family and CT imaging pending. At this time, she is waiting for her son to come visit her father. Prognosis remains fairly poor. Patient remains in septic shock with toxic encephalopathy. Continue with monitoring labs closely. Review of Systems is unable to be obtained Physical Examination - Vital Signs Reviewed - Physical Exam General: Confused; BiPAP facial mass Respiratory: Diminished, Crackles/rales Cardiovascular: Regular rate/rhythm, Normal S1 S2, No murmurs Gastrointestinal: Hypoactive bowel sounds, Soft and benign, still with some tenderness and distention Musculoskeletal: No clubbing, minimal swelling Neurological: Sensation intact, Cranial nerves 3-12 intact Assessment & Plan - Problems (Diagnosis) (1) Septic shock Current Visit: Yes Status: Acute (2) SBP (spontaneous bacterial peritonitis) Current Visit: Yes Status: Acute (3) Pancreatic cancer Current Visit: Yes Status: Acute (4) Bacterial pneumonia Current Visit: Yes Status: Acute (5) Anemia/thrombocytopenia/leukocytosis Current Visit: Yes Status: Acute - Plan Continue with plan of care as mentioned below: 1. Continue with albumin Lasix drip. Discuss with the regarding poor prognosis and possible hospice. Will discuss with children. 2. Continue with IV [id number]; cultures pending 3. Continue with pain control; medication for agitation 4. If patient not improving then family considering other options. 5. Infectious Disease and Pulmonary consultation appreciated 6. Continue monitoring labs in awaiting cultures; gram-positive growing in blood. On vancomycin and meropenem 7. Spoke with family and prognosis is poor. They do not want patient to be intubated. Otherwise they do want everything else done 8. GI and DVT prophylaxis Plan to discharge in: Greater than 2 days - Advance Directives Does patient have a Living Will: No Does patient have a Durable POA for Healthcare: No - Code Status/Comfort Care Code Status Assessed: Yes Code Status: Do Not Intubate Critical Care: Yes Time Spent Managing PTS Care (In Minutes): 55
--- NOTE | 2021-08-11 10:53 | P.PN ---
Date of Service: 08/11/21 Subjective According to the family, patient is more awake and alert. Nurses also asked for more medication for agitation today. CT imaging showed bilateral consolidated pneumonia. Otherwise, no significant abnormalities noted. Patient is getting weaned off of the BiPAP today. Hopefully patient keeps oxygenation up and we can start on nasal cannula. Consider tube feedings today. Patient is currently off the Levophed. Will go ahead and take off of bicarb. Spoke with MD Marc physician and we went over lab data with patient's physician. Concern for pancytopenia. After reviewing he felt like he was related to sepsis. Has not had chemo in many weeks. And patient has never had that issue before. Did not feel they could provide additional care. Recommending comfort measures at this time Telephone Consult and discuss the case with our local oncologist. Agree with hospice care as well. Will go ahead and make arrangements. Review of Systems is unable to be obtained Physical Examination - Vital Signs Reviewed - Physical Exam General: Confused; BiPAP facial mass Respiratory: Basilar crackles Cardiovascular: Regular rate/rhythm, Normal S1 S2, No murmurs Gastrointestinal: Hypoactive bowel sounds, Soft and benign, still with some tenderness and distention Musculoskeletal: No clubbing, minimal swelling Neurological: engineering librarian II-XII intact Assessment & Plan - Problems (Diagnosis) (1) Septic shock Current Visit: Yes Status: Acute (2) SBP (spontaneous bacterial peritonitis) Current Visit: Yes Status: Acute (3) Pancreatic cancer Current Visit: Yes Status: Acute (4) Bacterial pneumonia Current Visit: Yes Status: Acute (5) Thrombocytopenia and leukopenia Current Visit: Yes Status: Acute - Plan Continue with plan of care as mentioned below: 1. Patient diurese with albumin and Lasix. Significant amount of volume output. Patient had about 7 L out in the last 36 hr. Also will take another 2 L of peritoneal fluid off. Will go ahead and discontinue albumin Lasix drip 2. Continue with IV [id number]; cultures pending 3. Continue with pain control; medication for agitation and pain 4. Oncology consultation for pancytopenia 5. Infectious Disease and Pulmonary consultation appreciated 6. Continue monitoring labs in awaiting cultures; gram-positive growing in blood. Antibiotics changed to ampicillin for enterococcus coverage 7. Spoke with family and prognosis is poor. They do not want patient to be intu bated. Contemplating hospice. 8. GI and DVT prophylaxis Plan to discharge in: Greater than 2 days - Advance Directives Does patient have a Living Will: No Does patient have a Durable POA for Healthcare: No - Code Status/Comfort Care Code Status Assessed: Yes Code Status: Do Not Intubate Critical Care: Yes Time Spent Managing PTS Care (In Minutes): 55
[2021-08-11] MEDS: NA CHLORIDE 0.9% 1,000 ML IV SCH (11:00)
[2021-08-11] MEDS: Levofloxacin500mg IV 500 MG/100 ML BAG IV SCH (11:00)
--- NOTE | 2021-08-11 11:23 | P.PN ---
Subjective Date of Service: 08/11/21 Chief Complaint: Septic shock Patient seen examined at bedside, on BiPAp sleeping. Review of Systems 10-point ROS is otherwise unremarkable Physical Examination - Vital Signs Temperature: 97.6 F Blood Pressure: 106/63 Pulse: 114 Respirations: 19 Pulse Ox (%): 96 - Studies Laboratory Last Values WBC 21.00 K/uL (4.3-10.9) H* 08/07/21 02:20 RBC 2.97 M/uL (4.33-5.43) L 08/07/21 02:20 Hgb 9.3 g/dL (13.6-17.9) L 08/07/21 02:20 Hct 28.1 % (39.6-49.0) L 08/07/21 02:20 MCV 94.5 fL (80-100) 08/07/21 02:20 MCH 31.3 pg (27.0-35.0) 08/07/21 02:20 MCHC 33.1 g/dL (32.0-36.0) 08/07/21 02:20 RDW 18.5 % (12.1-15.2) H 08/07/21 02:20 Plt Count 145 K/uL (152-406) L 08/07/21 02:20 MPV 8.0 fL (7.6-11.3) 08/07/21 02:20 Neutrophils % 99.2 % (41.7-73.7) H 08/07/21 02:20 Lymphocytes % 0.5 % (15.3-44.8) L 08/07/21 02:20 Monocytes % 0.2 % (3.3-12.3) L 08/07/21 02:20 Eosinophils % 0.0 % (0-4.4) 08/07/21 02:20 Basophils % 0.1 % (0-1.3) 08/07/21 02:20 Absolute Neutrophils 20.9 K/uL (1.8-8.0) H 08/07/21 02:20 Segmented Neutrophils 74 % (40-80) 08/07/21 02:20 Band Neutrophils 20 % (0-1) H* 08/07/21 02:20 Absolute Lymphocytes 0.1 K/uL (0.7-4.9) L 08/07/21 02:20 Lymphocytes 2 % (15-42) L 08/07/21 02:20 Monocytes 3 % (0-10) 08/07/21 02:20 Absolute Monocytes 0.0 K/uL (0.1-1.3) L 08/07/21 02:20 Absolute Eosinophils 0.0 K/uL (0-0.5) 08/07/21 02:20 Absolute Basophils 0.0 K/uL (0-0.5) 08/07/21 02:20 Reactive Lymphocytes 1 % 08/07/21 02:20 Platelet Estimate Adeq 08/07/21 02:20 Polychromasia 1+ 08/07/21 02:20 Morphology Comment Noted (NOT SEEN) 08/07/21 02:20 PT 16.0 SECONDS (9.5-12.5) H 08/07/21 02:20 INR 1.39 08/07/21 02:20 APTT 25.8 SECONDS (24.3-36.9) 08/07/21 02:20 pH 7.38 (7.35-7.45) 08/07/21 10:07 pCO2 22.9 mmHG (35-45) L 08/07/21 10:07 pO2 51.5 mmHG (75-100) L 08/07/21 10:07 HCO3 13.2 mmol/L (22-28) L 08/07/21 10:07 Base Excess -11.0 mmol/L 08/07/21 10:07 Oxyhemoglobin 79.4 % (94-97) L 08/07/21 10:07 ABG O2 Sat (Measured) 81.8 % (92-98.5) L 08/07/21 10:07 ABG Carboxyhemoglobin 1.6 % (0-1.5) H 08/07/21 10:07 ABG Methemoglobin 1.3 % (0-1.5) 08/07/21 10:07 Other Total Hgb 9.1 g/dl (12-18) L 08/07/21 10:07 Inspired O2 100.0 % 08/07/21 10:07 Sodium 140 mmol/L (136-145) 08/07/21 02:20 Potassium 3.7 mmol/L (3.5-5.1) 08/07/21 02:20 Chloride 106 mmol/L (98-107) 08/07/21 02:20 Carbon Dioxide 18 mmol/L (21-32) L 08/07/21 02:20 BUN 23 mg/dL (7-18) H 08/07/21 02:20 Creatinine 0.78 mg/dL (0.55-1.3) 08/07/21 02:20 Estimated GFR > 90 mL/min (=/>90) 08/07/21 02:20 Glucose 60 mg/dL (74-106) L 08/07/21 02:20 Lactic Acid 8.4 mmol/L (0.4-2.0) H* 08/07/21 05:30 Calcium 7.6 mg/dL (8.5-10.1) L 08/07/21 02:20 Total Bilirubin 1.4 mg/dL (0.2-1.0) H 08/07/21 02:20 Direct Bilirubin 1.1 mg/dL (0-0.2) H 08/07/21 02:20 AST 83 U/L (15-37) H 08/07/21 02:20 ALT 51 U/L (12-78) 08/07/21 02:20 Alkaline Phosphatase 658 U/L (45-117) H 08/07/21 02:20 Creatine Kinase 75 U/L (39-308) 08/07/21 02:20 CK-MB (CK-2) 2.7 ng/mL (1.0-3.6) 08/07/21 02:20 Rapid Troponin I 0.12 ng/mL (0.0-0.045) H 08/07/21 02:20 NT-Pro-B Natriuret Pep 6178 pg/mL (<125) H 08/07/21 02:20 Serum Total Protein 5.4 g/dL (6.4-8.2) L 08/07/21 02:20 Albumin 1.9 g/dL (3.4-5.0) L 08/07/21 02:20 Globulin 3.5 g/dL (2.3-3.5) 08/07/21 02:20 Albumin/Globulin Ratio 0.5 (1.1-1.8) L 08/07/21 02:20 Amylase 20 U/L (25-115) L 08/07/21 02:20 Lipase 11 U/L (73-393) L 08/07/21 02:20 Procalcitonin 14.60 ng/mL (<0.050) H 08/07/21 02:20 Urine RBC Cancelled 08/07/21 02:02 Urine WBC Cancelled 08/07/21 02:02 Ur Squamous Epith Cells Cancelled 08/07/21 02:02 Ur Urothelial Cells Cancelled 08/07/21 02:02 Calcium Oxalate Crystal Cancelled 08/07/21 02:02 Uric Acid Crystals Cancelled 08/07/21 02:02 Triple Phos Crystals Cancelled 08/07/21 02:02 Other Crystals Cancelled 08/07/21 02:02 Amorphous Sediment Cancelled 08/07/21 02:02 Glitter Cells Cancelled 08/07/21 02:02 Urine Bacteria Cancelled 08/07/21 02:02 Hyaline Casts Cancelled 08/07/21 02:02 Fine Granular Casts Cancelled 08/07/21 02:02 Coarse Granular Casts Cancelled 08/07/21 02:02 Waxy Casts Cancelled 08/07/21 02:02 RBC Casts Cancelled 08/07/21 02:02 WBC Casts Cancelled 08/07/21 02:02 Urine Mucus Cancelled 08/07/21 02:02 Urine Other Cancelled 08/07/21 02:02 Urine Trichomonas Cancelled 08/07/21 02:02 Urine Yeast Cancelled 08/07/21 02:02 Ur Yeast w Hyphae Cancelled 08/07/21 02:02 Urine Yeast (Budding) Cancelled 08/07/21 02:02 Urine Sperm Cancelled 08/07/21 02:02 Urine Culture Reflexed Cancelled 08/07/21 02:02 Urine Total Volume Cancelled 08/07/21 02:02 Fluid Source Peritoneal 08/07/21 05:40 Fluid Color Yellow (COLORLESS) H 08/07/21 05:40 Fluid Appearance Slt. turbid (CLEAR) H 08/07/21 05:40 Fld Supernatant Color (Not Xantho) 08/07/21 05:40 Fluid WBC 68 /mm^3 08/07/21 05:40 Fluid RBC 663 /mm^3 08/07/21 05:40 Fluid Neutrophils 39 % 08/07/21 05:40 Fluid Lymphocytes 31 % 08/07/21 05:40 Fluid Mononuclear Cell 30 % 08/07/21 05:40 Influenza Type A RNA Negative (NEGATIVE) 08/07/21 02:25 Influenza Type B RNA Negative (NEGATIVE) 08/07/21 02:25 SARS-CoV-2 RNA (RT-PCR) Negative (NEGATIVE) 08/07/21 02:25 Miscellaneous Test Sent 08/07/21 05:40 Microbiology Data (last 24 hrs): 08/07/21 02:38 Blood - Blood Aerobic Blood Culture - Final Enterococcus Faecalis 08/07/21 02:38 Blood - Blood Blood Culture Gram Stain - Final 08/07/21 02:38 Blood - Blood Anaerobic Blood Culture - Final Enterococcus Faecalis 08/07/21 02:38 Blood - Blood Gram Stain - Final 08/07/21 05:40 Body Fluid - Abdomen Gram Stain - Final 08/07/21 05:40 Body Fluid - Abdomen Culture & Sensitivity - Final 08/07/21 02:49 Blood - Blood Blood Culture Gram Stain - Final 08/07/21 02:49 Blood - Blood Gram Stain - Final Assessment And Plan - Plan Physical Exam: General: Cachectic, jaundiced skin) HEENT: Atraumatic, Normocephalic Neck: Supple, 2+ carotid pulse no bruit Respiratory: Clear to auscultation bilaterally, Normal air movement Cardiovascular: No edema, Regular rate/rhythm, Normal S1 S2 Capillary refill: <2 Seconds Gastrointestinal: Normal bowel sounds, Distended, abdomen Abdelrahman, and no tenderness. Musculoskeletal: No clubbing, No swelling, No contractures Integumentary: No rashes, No breakdown, No significant lesion Extremities: Bilateral lower extremity--improving. Hematomas on bilateral upper extremities. Urinary: Padilla catheter External genitalia: Deferred Rectal: Deferred Conclusions/Impression: Antibiotics: current: ampicillin start: 08/10 stop: -- Levaquin start: 08/11 stop: -- DC: Vancomycin Start: 08/07 Stop: 08/10 Meropenem Start: 08/07 Stop: 08/10 Lines: Right lower quadrant peritoneal indwelling catheter Right femoral central line Right AC peripheral line Assessment/plan Severe sepsis Severe sepsis noted on admission with hypotension, tachycardiac, elevated lactic acid, leukocytosis. Patient has history of pancreatic cancer and was recently treated at [facility] for sepsis related to infected Port-A-Cath. Port-A-Cath was removed on the 11 of July. The port was placed last year in March when the patient was diagnosed with pancreatic cancer. During patient's hospitalization at [facility] a peritoneal indwelling catheter was placed. Catheter insertion site clean dry and intact. Source of infection unknow. Initially suspected spontaneous bacterial peritonitis however ascites fluid with less than 100 WBC, gram stain negative, culture showed mixed skin jose. However fluid was collected at 5:40 on 08/07, vancomycin was started on 3:15 on 08/07, antibiotic started before fluid was pulled. In addition fluid not handled properly, was sent and tubes in the blood culture bottles. No urine culture/urine analysis was performed on admission, Urine culture and analysis ordered however patient has been on antibiotics for 4 days now. Cannot rule out urine as a source of possible sepsis. Additionally, repeat CT scan of chest is showing possible bilateral pneumonia which could also be source of infection. CT chest/abdomen/pelvis showing hypodense lesions in the liver, dilated biliary tree, pneumobilia. 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 Due to worsening condition in immunocompromised state blood fungal panel ordered. Panel includes: DNA PCR CMV& EBV, QuantiFERON gold, parovirus, galactomannan, beta d glucan. Possible bilateral pneumonia CT performed on 08/10 showed extensive bilateral lung consolidation concerning for possible bilateral pneumonia versus pulmonary edema. Patient started on Levaquin since 08/10. EKG also ordered. Bacteremia Blood cultures performed on 08/07 growing Enterococcus sensitive to ampicillin with an MAXIMUS of less than 2. Antibiotics deescalated from vancomycin and merum to ampicillin on 08/10. Repeat blood cultures taken on 08/09 pending. Patient will need antibiotics for two weeks following a negative blood culture report. Echo negative for vegetation. Pancytopenia Pancytopenia noted on most recent labs, continue to monitor closely. Protein caloric malnutrition Low albumin, patient has not had any caloric intake since admission. Recommend starting TPN. Pancreatic cancer Medical management per primary team Continue monitor CBC and BMP Continue to monitor for signs of infection Plan of care discussed with Dr. Wilson Thank you for consultation
[2021-08-11] MEDS ORDERED: POTASSIUM PHOS 30 MM in NA CHLORIDE 0.9% 500 ML IV ONE (12:00)
[2021-08-11] MEDS ORDERED: Levofloxacin500mg IV 500 MG/100 ML BAG IV ONE (12:01)
[2021-08-11] MEDS ORDERED: NA CHLORIDE 0.9% 1,000 ML ONE (12:02)
[2021-08-11 15:55] LABS: Urine Appearance CLOUDY (Clear); Urine Blood TRACE (Negative); Urine Color DK YELLOW (Yellow); Urine Glucose NEGATIVE (Negative); Urine Protein 1+ (Negative); Urine Urobilinogen 0.2 mg/dL (0.2-1.0); Urine pH 5.5 (5.0-7.0)
[2021-08-11 16:03] LABS: Urine Bilirubin 1+ (Negative)
[2021-08-11 16:14] LABS: Urine Bacteria <20 /HPF (NONE SEEN)
[2021-08-11 16:15] LABS: Urine Mucus 2+ /HPF (NONE SEEN)
[2021-08-11] MEDS: FENTANYL CITR 100 MCG/2 ML IV PRN ×3 (18:00→22:04)
[2021-08-11] MEDS ORDERED: FENTANYL CITR 100 MCG/2 ML ONE ×3 (18:20→22:27)
[2021-08-11] MEDS ORDERED: AMPICILLIN/SULBACTAM 3GM/VIAL ONE (20:02)
--- NOTE | 2021-08-11 22:28 | P.PN ---
Date of Service: 08/11/21 Family wants to proceed with hospice care in the morning. Will go ahead and make arrangements for 8 med hospice. Patient will need inpatient hospice care.
[2021-08-12] MEDS: FENTANYL CITR 100 MCG/2 ML IV PRN ×5 (00:15→09:30)
[2021-08-12] MEDS ORDERED: FENTANYL CITR 100 MCG/2 ML ONE ×5 (00:34→11:39)
[2021-08-12] MEDS ORDERED: LORazepam 2 MG/ML VIAL IV ONE (00:55)
[2021-08-12] MEDS: ALBUTEROL 2.5 MG/3 ML NEB SOL NEB SCH ×3 (00:57→13:39)
[2021-08-12] MEDS: IPRATROPIUM BROM 0.5MG/2.5ML NEB SCH ×3 (00:57→13:39)
[2021-08-12] MEDS ORDERED: LORazepam 2 MG/ML VIAL ONE (01:15)
[2021-08-12] MEDS ORDERED: IPRATROPIUM BROM 0.5MG/2.5ML ONE ×3 (01:23→14:02)
[2021-08-12] MEDS ORDERED: ALBUTEROL 2.5 MG/3 ML NEB SOL ONE ×3 (01:23→14:02)
[2021-08-12] MEDS ORDERED: NA CHLORIDE 0.9% 1,000 ML ONE (06:27)
[2021-08-12 06:41] LABS: Absolute Lymphocytes (CBC) 0.1 K/uL (0.7-4.9); Basophils % 0.2 % (0-1.3); Hematocrit 31.2 % (39.6-49.0); Lymphocytes % 1.3 % (15.3-44.8); MPV 10.1 fL (7.6-11.3); RBC Red Blood Cell Count 3.47 M/uL (4.33-5.43)
[2021-08-12] MEDS ORDERED: DEXTROSE 10%-WATER 500 ML IV ONE (06:44)
[2021-08-12] MEDS: NA CHLORIDE 0.9% 1,000 ML IV SCH (07:00)
[2021-08-12 07:07] LABS: ALT/SGPT 66 U/L (12-78); AST/SGOT 48 U/L (15-37); Albumin 1.9 g/dL (3.4-5.0); Alkaline Phosphatase 342 U/L (45-117); BUN Blood Urea Nitrogen 29 mg/dL (7-18); Bicarbonate 35 mmol/L (21-32); Bilirubin Total 3.2 mg/dL (0.2-1.0); Glucose Level 142 mg/dL (74-106); Magnesium 1.8 mg/dL (1.8-2.4); Protein, Total 4.8 g/dL (6.4-8.2); Sodium Level 137 mmol/L (136-145)
[2021-08-12] MEDS ORDERED: PANTOPRAZOLE 40 MG INJ ONE (08:11)
[2021-08-12] MEDS ORDERED: HYDROCORTISONE SUC 100 MG INJ ONE (08:11)
[2021-08-12] MEDS ORDERED: ENOXAPARIN 30 MG/0.3 ML SQ ONE (08:11)
[2021-08-12] MEDS ORDERED: Levofloxacin500mg IV 500 MG/100 ML BAG IV ONE (08:12)
[2021-08-12 08:20] VITALS: TEMP 97.9; BMI 16.7
[2021-08-12] MEDS: PANTOPRAZOLE 40 MG INJ IVP SCH (09:00)
[2021-08-12] MEDS: ENOXAPARIN 30 MG/0.3 ML SQ SCH (09:00)
[2021-08-12] MEDS: HYDROCORTISONE SUC 100 MG INJ IV SCH (09:00)
[2021-08-12 10:13] VITALS: BP 111/76
[2021-08-12] MEDS: Levofloxacin500mg IV 500 MG/100 ML BAG IV SCH (11:00)
[2021-08-12 11:04] LABS: Dohle Bodies PRESENT; Platelet Estimate DECR; Toxic Granulation 1+
[2021-08-12 11:05] LABS: Blood Morphology Comment NOT SEEN (NOT SEEN)
[2021-08-12 11:32] VITALS: O2SAT 97
[2021-08-12] MEDS ORDERED: MORPHINE 2 MG/ML SYR IM PRN (12:55)
[2021-08-12] MEDS ORDERED: FENTANYL 50 MCG/PATCH TD ONE ×2 (12:55→15:00)
[2021-08-12] MEDS ORDERED: LORazepam 2 MG/ML VIAL IV PRN (12:55)
--- NOTE | 2021-08-12 13:03 | P.PN ---
Subjective Date of Service: 08/12/21 Chief Complaint: Septic shock Review of Systems is unable to be obtained Physical Examination - Vital Signs Temperature: 97.9 F Blood Pressure: 111/76 Pulse: 112 Respirations: 29 Pulse Ox (%): 96 - Physical Exam General: Unresponsive HEENT: Atraumatic, PERRLA, EOMI Neck: Supple, JVD not distended Respiratory: Diminished Cardiovascular: Regular rate/rhythm, Normal S1 S2 Gastrointestinal: Normal bowel sounds, No tenderness Musculoskeletal: No tenderness Integumentary: No rashes Neurological: Normal speech, Normal tone, Normal affect Lymphatics: No axilla or inguinal lymphadenopathy - Studies Microbiology Data (last 24 hrs): 08/07/21 02:49 Blood - Blood Aerobic Blood Culture - Final Enterococcus Faecalis 08/07/21 02:49 Blood - Blood Blood Culture Gram Stain - Final 08/07/21 02:49 Blood - Blood Anaerobic Blood Culture - Final Enterococcus Faecalis 08/07/21 02:49 Blood - Blood Gram Stain - Final Assessment & Plan - Problems (Diagnosis) (1) End of life care Current Visit: Yes Status: Acute Plan: admitting patient to a med hospice,. (2) Pancreatic cancer Current Visit: Yes Status: Acute Plan: plans for hospice, Qualifiers: Pancreatic malignancy location: unspecified Qualified Code(s): C25.9 - Malignant neoplasm of pancreas, unspecified (3) Septic shock Current Visit: Yes Status: Acute Plan: stop antibiotics and pressors Discharge Plan: Home Plan to discharge in: 24 Hours - Code Status/Comfort Care Code Status Assessed: No Physician Review: Patient Assessed, Agree with Above Assessment and Plan Critical Care: No Time Spent Managing Pts Care (In Minutes): 30
[2021-08-12] MEDS ORDERED: SCOPOLAMINE HYDROBROMIDE PATCH TD ONE ×2 (14:00→14:56)
[2021-08-12] MEDS ORDERED: FENTANYL 25 MCG/PATCH TD ONE ×2 (14:54→15:00)
--- NOTE | 2021-08-12 15:44 | P.DS ---
Admission Date: 08/07/21 Discharge Date: 08/12/21 Disposition: HOSPICE-MEDICAL FACILITY Discharge Condition: SERIOUS Reason for Admission: Septic shock - Problems (1) End of life care Current Visit: Yes Status: Acute (2) Pancreatic cancer Current Visit: Yes Status: Acute Qualifiers: Pancreatic malignancy location: unspecified Qualified Code(s): C25.9 - Malignant neoplasm of pancreas, unspecified (3) Septic shock Current Visit: Yes Status: Acute Brief History of Present Illness: Patient admitted for sepsis. Has a history of pancreatitis. He has an overall poor prognosis. Hospital Course: Patient was admitted to a med hospice. His and son are at the bedside. In agreement. Will stop his antibiotics. Start him on sedaton and pain meds. Thank you for allowing me to take part in his care. I wish the family the best. Vital Signs/Physical Exam: Temp Pulse Resp BP Pulse Ox 97.9 F 112 H 25 H 111/76 96 08/12/21 13:03 08/12/21 13:03 08/12/21 14:36 08/12/21 13:03 08/12/21 13:03 Laboratory Data at Discharge: WBC 7.80 K/uL (4.3-10.9) D 08/12/21 06:25 Hgb 10.5 g/dL (13.6-17.9) L 08/12/21 06:25 Hct 31.2 % (39.6-49.0) L 08/12/21 06:25 Plt Count 10 K/uL (152-406) L* 08/12/21 06:25 PT 15.4 SECONDS (9.5-12.5) H 08/09/21 16:10 INR 1.34 08/09/21 16:10 APTT 32.7 SECONDS (24.3-36.9) 08/09/21 16:10 Sodium 137 mmol/L (136-145) 08/12/21 06:25 Potassium 3.0 mmol/L (3.5-5.1) L 08/12/21 06:25 BUN 29 mg/dL (7-18) H 08/12/21 06:25 Creatinine 0.56 mg/dL (0.55-1.3) 08/12/21 06:25 Glucose 142 mg/dL (74-106) H 08/12/21 06:25 Phosphorus 2.5 mg/dL (2.5-4.9) 08/11/21 05:30 Magnesium 1.8 mg/dL (1.8-2.4) 08/12/21 06:25 Total Bilirubin 3.2 mg/dL (0.2-1.0) H 08/12/21 06:25 AST 48 U/L (15-37) H 08/12/21 06:25 ALT 66 U/L (12-78) 08/12/21 06:25 Alkaline Phosphatase 342 U/L (45-117) H 08/12/21 06:25 Amylase 20 U/L (25-115) L 08/07/21 02:20 Lipase 11 U/L (73-393) L 08/07/21 02:20 Followup: Andrea Yo MD [Primary Care Provider] -
== END 2021-08-12 15:52 | disposition hospice, inpatient (51) | DRG 871 ==
LOC: ER 01:49 → ERHOLD 10:25 → 2ND 08-12 14:46
PROVIDERS: ADMIT Hospitalist; ATTEND Hospitalist
PROC: 5A09457 Assistance with Respiratory Ventilation, 24-96 Consecutive Hours, Continuous Positive Airway Pressure (ICD-10-PCS; principal; 2021-08-07)
DX: A41.9 Sepsis, unspecified organism (principal); J15.9 Unspecified bacterial pneumonia; R65.21 Severe sepsis with septic shock; G93.41 Metabolic encephalopathy; K65.2 Spontaneous bacterial peritonitis; D84.9 Immunodeficiency, unspecified; D61.818 Other pancytopenia; E46 Unspecified protein-calorie malnutrition; Z68.1 Body mass index [BMI] 19.9 or less, adult; C25.9 Malignant neoplasm of pancreas, unspecified; E87.2 Acidosis; R64 Cachexia; R17 Unspecified jaundice; R06.03 Acute respiratory distress; D69.6 Thrombocytopenia, unspecified; Z20.822 Contact with and (suspected) exposure to COVID-19
CPT/HCPCS: 0240U; 36415; 36430; 70450; 71045; 71250; 71275; 74176; 74177; 80048; 80053; 80076; 80202; 81001; 82140; 82150; 82550; 82553; 82805; 82947; 83605; 83690; 83735; 83880; 84100; 84132; 84145; 84484; 85025; 85379; 85384; 85610; 85730; 86644; 86850; 86900; 86901; 87040; 87070; 87077; 87086; 87088; 87102; 87186; 87205; 89050; 93005; 93306; 94002; 94640; 94660; 99285; C9113; J0290; J0295; J0692; J1170; J1650; J1720; J2185; J3010; J3370; J3480; J3486; J7030; J7040; J7042; J7050; J7060; J7799; P9016; P9035; P9047; Q9967

== ENCOUNTER 2021-08-12 15:58 | Inpatient (IN) | payer OTHER ==
[2021-08-12] MEDS: MORPHINE 2 MG/ML SYR IV PRN (18:02)
[2021-08-12] MEDS: LORazepam 2 MG/ML VIAL IV PRN (18:02)
[2021-08-13 02:08] VITALS: BMI 16.7
[2021-08-13] MEDS: MORPHINE 2 MG/ML SYR IV PRN (04:10)
[2021-08-13] MEDS: LORazepam 2 MG/ML VIAL IV PRN ×2 (04:11→15:07)
[2021-08-13] MEDS ORDERED: MORPHINE 2 MG/ML SYR IV PRN (14:12)
[2021-08-13] MEDS ORDERED: LORazepam 2 MG/ML VIAL IV PRN (14:12)
[2021-08-13] MEDS ORDERED: ACETAMINOPHEN 650MG/RECT SUPP PR PRN (14:13)
[2021-08-13] MEDS ORDERED: BISACODYL 10 MG RECTAL SUPP PR PRN (14:15)
[2021-08-13] MEDS ORDERED: ONDANSETRON 4 MG/2 ML VIAL IV PRN (14:15)
[2021-08-13] MEDS ORDERED: FENTANYL 75 MCG/PATCH TD SCH (15:00)
[2021-08-14] MEDS: LORazepam 2 MG/ML VIAL IV PRN (03:32)
[2021-08-14 09:18] VITALS: BP 112/72; TEMP 98.7
[2021-08-14 10:00] VITALS: O2SAT 96
[2021-08-14] MEDS: LORazepam 2 MG/ML VIAL IV SCH ×2 (12:16→17:09)
[2021-08-14] MEDS: MORPHINE 2 MG/ML SYR IV SCH ×2 (13:37→18:18)
[2021-08-15] MEDS ORDERED: SCOPOLAMINE HYDROBROMIDE PATCH TD SCH (09:00)
== END 2021-08-14 20:45 | disposition expired | DRG 951 ==
LOC: 2ND 15:58
PROVIDERS: ADMIT Internal Medicine Hematology & Oncology; ATTEND Internal Medicine Hematology & Oncology
DX: Z51.5 Encounter for palliative care (principal); A41.9 Sepsis, unspecified organism; R65.21 Severe sepsis with septic shock; C25.9 Malignant neoplasm of pancreas, unspecified
CPT/HCPCS: 94660; J2270